=== PATIENT | male | born 1955 | race Caucasian/White ===

== ENCOUNTER → 2018-09-25 08:49 | Outpatient (CLI) | payer MEDICARE, OTHER, SELFPAY ==
[2018-09-25 10:17] LABS: Hemoglobin A1C% w Est Avg Glu 6.4 % (4.0-6.0)
[2018-09-25 10:41] LABS: Alanine Aminotransferase 40 IU/L (21-72); Albumin 4.4 g/dL (3.5-5.0); Alkaline Phosphatase 64 U/L (38-126); Aspartate Aminotransferase 25 IU/L (17-59); Bilirubin Total 0.6 mg/dL (0.2-1.3); Blood Urea Nitrogen 18 mg/dL (9-20); Calcium 9.5 mg/dL (8.4-10.2); Carbon Dioxide 31 mmol/L (22-32); Chloride 99 mmol/L (98-107); Cholesterol 222 mg/dL (140-199); Estimated Glomerular Filt Rate > 60.0 mL/min (>60); Globulin 2.2 g/dL (1.7-4.1); Glucose 122 mg/dL (80-110); HDL Cholesterol 46 mg/dL (40-60); HEMOLYSIS < 15 (0-50); LDL Cholesterol Calculated 123 mg/dL (<100); Potassium 4.8 mmol/L (3.4-5.1); Sodium 140 mmol/L (137-145); Total Protein 6.6 g/dL (6.3-8.2); Triglycerides 264 mg/dL (35-150)
[2018-09-25 11:10] LABS: Prostate Specific Antigen Scrn 1.31 ng/mL (0.1-4.0)
== END ==
PROVIDERS: Visit Provider Internal Medicine
DX: E03.9 Hypothyroidism, unspecified (principal); E11.9 Type 2 diabetes mellitus without complications; I10 Essential (primary) hypertension
CPT/HCPCS: 36415; 80053; 80061; 83036; G0103

== ENCOUNTER → 2018-10-12 07:56 | Outpatient (CLI) | payer MEDICARE, OTHER, SELFPAY ==
--- NOTE | 2018-10-12 | DI.US.S_ITS ---
PROCEDURE: US ABD AORTA ANEURYSM SCREEN INDICATIONS: ABDOMINAL AORTIC ANEURYSM SCREENING TECHNIQUE: Real time scanning was performed of the aorta and iliac arteries, with image documentation. COMPARISON: None. FINDINGS: Aorta: Proximal aortic diameter measures 1.9 cm. Mid-aorta measures 1.6 cm. Distal aortic diameter is 1.5 cm. Iliac arteries: Right common iliac artery measures 1.1 cm. Left common iliac artery measures 1.0 cm. IMPRESSION: No evidence of abdominal aortic aneurysm. Dictated by: Franklin Esquivel M.D. on 10/12/2018 at 9:02 Approved by: Franklin Esquivel M.D. on 10/12/2018 at 9:03
== END ==
PROVIDERS: PCP Internal Medicine; Visit Provider Internal Medicine
DX: Z13.6 Encounter for screening for cardiovascular disorders (principal)
CPT/HCPCS: 76706

== ENCOUNTER → 2018-10-22 07:02 | Outpatient (CLI) | payer MEDICARE, OTHER, SELFPAY ==
[2018-10-22 08:29] LABS: Alanine Aminotransferase 36 IU/L (21-72); Aspartate Aminotransferase 25 IU/L (17-59); Cholesterol 119 mg/dL (140-199); HDL Cholesterol 37 mg/dL (40-60); LDL Cholesterol Calculated 55 mg/dL (<100); Triglycerides 136 mg/dL (35-150)
[2018-10-22 09:30] LABS: Hep C Virus Ab w/Reflex Quant NEGATIVE s/c (NEGATIVE)
== END ==
PROVIDERS: PCP Internal Medicine; Visit Provider Internal Medicine
DX: E78.00 Pure hypercholesterolemia, unspecified (principal)
CPT/HCPCS: 36415; 80061; 84450; 84460; 86803

== ENCOUNTER → 2019-11-22 09:07 | Outpatient (CLI) | payer MEDICARE, OTHER, SELFPAY ==
[2019-11-22 09:23] LABS: Add Manual Diff / Slide Review NO; Basophils Absolute Auto 100 /uL (0-100); Basophils Percent Auto 0.8 % (0-2); Eosinophils Absolute Auto 100 /uL (0-450); Eosinophils Percent Auto 1.6 % (2-4); Lymphocytes Absolute Auto 1500 /uL (1100-4500); Lymphocytes Percent Auto 20.3 % (25-40); Mean Corpuscular HGB Conc 35.7 % (30-36); Mean Corpuscular Hemoglobin 31.4 PG (26-34); Monocytes Absolute Auto 500 /uL (0-900); Neutrophils Absolute Auto 5400 /uL (1500-7000); Neutrophils Percent Auto 71.3 % (50-75); Platelet Count 287 X10^3/uL (150-400); Red Blood Cell Count 4.77 X10^6/uL (4.5-5.9); Red Cell Distribution Width 13.1 % (11.6-14.8); White Blood Cell Count 7.6 X10^3/uL (4.5-11.0)
[2019-11-22 09:30] LABS: Monotest Negative (Negative)
== END ==
PROVIDERS: PCP Internal Medicine; Visit Provider Internal Medicine
DX: J06.9 Acute upper respiratory infection, unspecified (principal)
CPT/HCPCS: 36415; 85025; 86318

== ENCOUNTER → 2019-12-03 08:05 | Outpatient (CLI) | payer MEDICARE, OTHER, SELFPAY ==
--- NOTE | 2019-12-05 04:18 | DI.NM.S_ITS ---
DATE OF SERVICE: 12/03/2019 PROCEDURE PERFORMED: Exercise treadmill stress and rest myocardial perfusion imaging study with gating to assess ejection fraction and regional wall motion. ORDERING PROVIDER: Pasha Lam MD INDICATIONS: The patient is a 64-year-old hypertensive, diabetic male with chronic exertional dyspnea. EXERCISE TREADMILL TESTING: The patient was able to exercise for 7 minutes 32 seconds on a standard Camacho protocol, suggesting average exercise capacity with an HERNAN of 0%. He had a normal heart rate and blood pressure response, achieving a maximum heart rate of 141 bpm (92% of his predicted maximum). He developed 4/10 chest discomfort in stage III that resolved promptly in recovery. His resting ECG is normal with normal ST segments. There are no significant ST segment shifts with exercise or into recovery. There were no arrhthymias seen. At 6 minutes 35 seconds of exercise, at a heart rate of 131 bpm, 26.8 mCi of technetium 99m Myoview was injected and the patient was imaged 15 minutes later using a gated SPECT acquisition protocol. He returned the following day and was reinjected with an additional 25.7 mCi of technetium 99m Myoview and was imaged 40 minutes later, again using a gated SPECT acquisition protocol. FINDINGS: RAW DATA: There is fairly good myocardial tracer uptake, although there does appear to be some diaphragmatic attenuation. Lung/heart ratio is normal at 0.24 with a normal TID ratio of 0.98. QUANTITATIVE GATED SPECT: Post stress ejection fraction is estimated at 74% without any regional wall motion abnormality. Resting ejection fraction is 75% with an end diastolic volume of 80 mL. MYOCARDIAL PERFUSION IMAGING: Post stress supine images show a fairly normal myocardial perfusion pattern with mildly reduced counts throughout the inferior wall in a pattern consistent with diaphragmatic attenuation, supported by its complete resolution on the prone images, which reveal a completely normal perfusion pattern. The resting images show an identical perfusion pattern without any areas of improvement. IMPRESSION: 1. Probable normal myocardial perfusion study. 2. Mild fixed inferior wall perfusion defect that completely resolves on prone imaging, consistent with diaphragmatic attenuation artifact. There is no compelling evidence for any myocardial ischemia or previous myocardial infarction. 3. Normal LV systolic function without any focal wall motion abnormality. 4. Average exercise capacity with provocable chest discomfort but no EKG changes of ischemia. Given the absence of any electrocardiographic or scintigraphic evidence for ischemia, this likely does not represent angina. However, if there is a high degree of clinical suspicion for ischemia, then stress echocardiography may add additional reassurance. Regardless, given the patient's normal LV systolic function and good exercise capacity, this would be considered a low risk study. Maxi Osorio - ANA LAURA/lesley/bradford doc#: [id number]/job#: [id number] dd: 12/04/2019 16:32:00 dt: 12/05/2019 04:03:00 DICTATING MD/COPIES TO: Milo Forte MD; Pasha Lam MD COPIES MNE: GABO;
== END ==
PROVIDERS: PCP Internal Medicine; Visit Provider Internal Medicine
DX: R06.09 Other forms of dyspnea (principal); R07.9 Chest pain, unspecified; E11.9 Type 2 diabetes mellitus without complications; I10 Essential (primary) hypertension
CPT/HCPCS: 78452; 93017; A9502

== ENCOUNTER → 2020-03-26 08:38 | Outpatient (CLI) | payer MEDICARE, OTHER, SELFPAY ==
[2020-03-26 10:01] LABS: Add Manual Diff / Slide Review NO; Basophils Absolute Auto 0 /uL (0-100); Basophils Percent Auto 0.8 % (0-2); Eosinophils Absolute Auto 100 /uL (0-450); Eosinophils Percent Auto 2.1 % (2-4); Hematocrit 42.7 % (41-53); Hemoglobin 14.8 g/dL (13.5-17.5); Lymphocytes Absolute Auto 1400 /uL (1100-4500); Lymphocytes Percent Auto 28.2 % (25-40); Mean Corpuscular HGB Conc 34.7 % (30-36); Mean Corpuscular Volume 89.3 fL (80-100); Monocytes Absolute Auto 400 /uL (0-900); Monocytes Percent Auto 8.3 % (3-14); Neutrophils Absolute Auto 3100 /uL (1500-7000); Neutrophils Percent Auto 60.6 % (50-75); Platelet Count 172 X10^3/uL (150-400); Red Blood Cell Count 4.78 X10^6/uL (4.5-5.9); Red Cell Distribution Width 12.8 % (11.6-14.8); White Blood Cell Count 5.1 X10^3/uL (4.5-11.0)
[2020-03-26 10:11] LABS: Hemoglobin A1C% w Est Avg Glu 6.9 % (4.0-6.0)
[2020-03-26 10:41] LABS: Alanine Aminotransferase 19 IU/L (<50); Albumin 3.9 g/dL (3.5-5.0); Albumin Globulin Ratio 1.6 (1.0-2.8); Alkaline Phosphatase 67 U/L (38-126); Aspartate Aminotransferase 23 IU/L (17-59); BUN Creatinine Ratio 20.7 (6-22); Bilirubin Total 0.5 mg/dL (0.2-1.3); Blood Urea Nitrogen 19 mg/dL (9-20); Calcium 9.1 mg/dL (8.4-10.2); Carbon Dioxide 29 mmol/L (22-32); Chloride 103 mmol/L (98-107); Cholesterol 119 mg/dL (140-199); Estimated Glomerular Filt Rate > 60.0 mL/min (>60); Globulin 2.4 g/dL (1.7-4.1); Glucose 115 mg/dL (80-110); HDL Cholesterol 34 mg/dL (40-60); HEMOLYSIS < 15 (0-50); LDL Cholesterol Calculated 63 mg/dL (<100); Potassium 4.4 mmol/L (3.4-5.1); Sodium 138 mmol/L (137-145); Total Protein 6.3 g/dL (6.3-8.2); Triglycerides 112 mg/dL (35-150)
[2020-03-26 11:05] LABS: TSH w/ Reflex to FT4 0.98 uIU/mL (0.47-4.68)
== END ==
PROVIDERS: PCP Internal Medicine; Referring Provider Internal Medicine; Visit Provider Internal Medicine
DX: I10 Essential (primary) hypertension (principal); E11.9 Type 2 diabetes mellitus without complications; E03.9 Hypothyroidism, unspecified; E78.00 Pure hypercholesterolemia, unspecified
CPT/HCPCS: 36415; 80053; 80061; 83036; 84443; 85025

== ENCOUNTER 2020-06-02 19:44 | Emergency (ER) | payer MEDICARE, OTHER, SELFPAY ==
[2020-06-02] VITALS (18 sets, daily range): BP systolic 141–173; BP diastolic 84–106; PULSE 57–81; RESP 15–20; TEMP 36.7–36.9; O2SAT 93–99
--- NOTE | 2020-06-02 19:58 | DI.CT.S_ITS ---
PROCEDURE: CT STROKE INDICATIONS: left hemianopsia x30 minutes, tpa candidate TECHNIQUE: Noncontrast 4.5 mm thick angled axial sections acquired from the foramen magnum to the vertex, with coronal reformats. For radiation dose reduction, the following was used: automated exposure control, adjustment of mA and/or kV according to patient size. COMPARISON: None. FINDINGS: Image quality: Excellent. CSF spaces: Basal cisterns are patent. No extra-axial fluid collections. Ventricles are normal in size and shape. Brain: No midline shift. Punctate hyperdensity is noted along the anterior margin of the left cerebellum.. Henderson-white matter interface is normal. Skull and face: Calvarium and visualized facial bones are intact, without suspicious lesions. Sinuses: Visualized sinuses and mastoids are clear. IMPRESSION: 1. Punctate hyperdensity along the anterior margin of cerebellum suspected to represent area of calcification possibly related to dystrophic calcification or vascular calcification. However, no priors are available for comparison. The above findings were discussed with Dr. Ari Salazar on 06/02/2020 at 8:23 p.m.. This study fulfills neurological imaging criteria for inclusion or exclusion of acute stroke therapies based on available published neurological imaging guidelines. Dictated by: Ofe Garcia M.D. on 06/02/2020 at 20:23 Approved by: Ofe Garcia M.D. on 06/02/2020 at 20:26
--- NOTE | 2020-06-02 20:03 | ED.NEUROSD ---
HPI - Neuro Symptoms/Deficit General Chief Complaint: Neuro Symptoms/Deficit Stated Complaint: LOSS EYE SIGHT TO LEFT EYE Time Seen by Provider: 06/02/20 19:45 Source: patient Mode of arrival: Ambulatory Limitations: no limitations History of Present Illness HPI Narrative: 65M former smoker with history of hypothyroid, diabetes, hypertension, GERD presents with his for evaluation of a sudden-onset painless left eye vision change that started about 30 minutes prior to his arrival. He had a normal day and was going about his normal routine when he sat down to his computer at about 7:30 p.m. and noticed that he could not type the password into his computer because he could not see the keys. He denies associated symptoms such as drooping face, trouble with speech or numbness, tingling or weakness of his extremities. He got off the couch in went to go look in the mere to evaluate his eye and he was walking into the wall because he could not see it. He presented here was activated as a code stroke given the time of onset of his symptoms. He denies any recent injury, prior cardiac history such as AFib or patent [place]. He denies any history of blood thinners, recent arterial punctures, or bleeding problems. Onset (ago): minute(s) Last Observed Normal: 19:30 Timing confirmed by: spouse History of same: No Severity: mild Relieving factors: none Exacerbating factors: none Context: sudden onset On Anticoagulants: No Associated symptoms: denies other symptoms Treatments Prior to Arrival: Aspirin (81mg that he takes daily) Related Data Home Medications Medication Instructions Recorded Confirmed levothyroxine #0 09/24/17 lisinopril #0 09/24/17 omeprazole #0 09/24/17 metformin 1,000 mg PO BID 06/02/20 06/02/20 Allergies Allergy/AdvReac Type Severity Reaction Status Date / Time No Known Allergies Allergy Uncoded 02/21/18 12:48 Review of Systems Constitutional Constitutional: Denies chills, Denies fatigue, Denies fever(s), Denies frequent falls, Denies lethargy and Denies weakness Eyes Eyes: Denies change in vision, Denies eye discharge, Denies irritation and Reports loss of vision ENT Ears, Nose, Mouth, and Throat: Denies change in voice, Denies dizziness, Denies neck pain, Denies sore throat and Denies throat swelling Cardiovascular Cardiovascular: Denies chest pain, Denies irregular heart rhythm, Denies lightheadedness, Denies palpitations, Denies dyspnea, Denies dyspnea on exertion and Denies orthopnea Respiratory Respiratory: Denies cough, Denies dyspnea, Denies dyspnea on exertion and Denies wheezing Gastrointestinal Gastrointestinal: Denies abdominal pain, Denies change in bowel habits, Denies diarrhea, Denies nausea and Denies vomiting Musculoskeletal Musculoskeletal: Denies neck pain and Denies numbness Integumentary/Breasts Skin/Breast: Denies pruritus, Denies erythema, Denies rash and Denies wounds Neurologic Neurologic: Denies behavioral changes, Denies confusion, Denies dizziness, Denies frequent falls, Reports loss of vision, Denies numbness and Denies weakness Psychiatric Psychiatric: Denies anxiety, Denies behavioral changes, Denies confusion, Denies depression, Denies homicidal ideation and Denies suicidal ideation Endocrine Endocrine: Denies fatigue, Denies flushing and Denies palpitations Hematologic/Lymphatic Hematologic/Lymphatic: Denies easy bruising Allergic/Immunologic Allergic/Immunologic: Denies urticaria, Denies throat swelling and Denies wheezing Patient History Smoking Status: Former smoker alcohol intake frequency: 0-2 drinks per day Substance Use Type: does not use Exam Narrative Exam Narrative: GENERAL: [65] year old patient appears stated age. Well-nourished, well-developed patient, in mild distress. HEAD: Atraumatic. Normocephalic. EYES: Pupils equal round and reactive. Extraocular motions intact. No scleral icterus. No injection or drainage. ENT: Nose without bleeding, purulent drainage. Throat without erythema, tonsillar hypertrophy or exudate. Airway patent. NECK: Trachea midline. Non tender CARDIOVASCULAR: Regular rate and rhythm without murmurs, gallops, or rubs. RESPIRATORY: Clear to auscultation. Breath sounds equal bilaterally. No wheezes, rales, or rhonchi. GASTROINTESTINAL: Abdomen soft, non-tender, nondistended. EXTREMITIES: No edema or joint tenderness. BACK: Nontender without deformity or crepitance. No flank tenderness. NEURO: AOx3. SKIN: No rash or erythema of visible areas Initial Vital Signs Initial Vital Signs: Vital Signs Temperature 98.3 F 06/02/20 19:53 Pulse Rate 81 06/02/20 19:53 Respiratory Rate 20 06/02/20 19:53 Blood Pressure 173/84 H 06/02/20 19:53 Pulse Oximetry 99 06/02/20 19:53 Scores NIH Stroke Scale Level of Conciousness: Alert, keenly responsive Ask month/age: Answers both questions correctly. Open/close eyes, close hand: Performs both tasks correctly Best gaze horizontal: Normal Visual corona: Complete hemianopia Facial palsy: Normal symetrical movement Left arm drift: No drift for full 10 sec Right arm drift: No drift for full 10 sec Left leg drift: No drift for full 10 sec Right leg drift: No drift for full 10 sec Limb ataxia: Absent Sensory on face/arms/legs: Normal, no sensory loss Best language: No aphasia, normal Dysarthria: Normal Extinction or inattention: No abnormality Total NIH Stroke scale score: 2 Course Course Course Narrative: tPA (Tissue Plasminogen Activator) Dosing for Stroke Calculator from [employer] on 06/02/2020 All calculations should be rechecked by clinician prior to use RESULT SUMMARY: 8.4 mg Bolus dose, given IV over 1 min 75.7 mg Infusion, given IV over 60 mins 15.9 mg Waste, to be discarded INPUTS: Weight ?> 93.4 kg tPA Contraindications for Ischemic Stroke from [employer] on 06/02/2020 All calculations should be rechecked by clinician prior to use RESULT SUMMARY: Patient eligible for tPA. INPUTS: Age ?16 ?> 1 = Yes Clinical diagnosis of ischemic stroke causing neurological deficit ?> 1 = Yes Time of symptom onset ?> 1 = Yes Intracranial hemorrhage on CT ?> 0 = No Clinical presentation suggests subarachnoid hemorrhage ?> 0 = No Neurosurgery, head trauma, or stroke in past 3 months ?> 0 = No Uncontrolled hypertension (>185 mmHg SBP or >110 mmHg DBP) ?> 0 = No History of intracranial hemorrhage ?> 0 = No Known intracranial arteriovenous malformation, neoplasm, or aneurysm ?> 0 = No Active internal bleeding ?> 0 = No Suspected/confirmed endocarditis ?> 0 = No Known bleeding diathesis ?> 0 = No Abnormal blood glucose ( ?> 0 = No Only minor or rapidly improving stroke symptoms ?> 0 = No Major surgery or serious non-head trauma in the previous 14 days ?> 0 = No History of gastrointestinal or urinary tract hemorrhage within 21 days ?> 0 = No Seizure at stroke onset ?> 0 = No Recent arterial puncture at a noncompressible site ?> 0 = No Recent lumbar puncture ?> 0 = No Post myocardial infarction pericarditis ?> 0 = No ?> 0 = No Age >80 years ?> 0 = No History of prior stroke and diabetes ?> 0 = No Any active anticoagulant use (even with INR ?> 0 = No NIHSS >25 ?> 0 = No CT shows multilobar infarction (hypodensity >1/3 cerebral hemisphere) ?> 0 = No 2119 - [facility] has no neuroICU beds 2100 - [facility] cannot accept this patient 215 - [facility] has no available beds 2200 - [facility] cannot accept this patient 2205 - has beds. Initial discussion with Dr. Jamil (Neuro) agrees with plan, requests call to automotive tire testing supervisor. Dr. Salas (Chief Port Director) calls back and happy to accept. Orders Ordered: ED Orders 06/02/20 19:55 Basic Metabolic Panel Stat Complete Blood Count AUTO DIFF Stat Partial Thromboplastin Time Stat Prothrombin Time INR Stat 06/02/20 19:58 CT Stroke Stat Urine Drug Screen, Rapid Stat 06/02/20 20:01 EKG-12 Lead Stat 06/02/20 20:07 CT angio head and neck Stat Sodium Chloride (Normal Saline 0.9%) 1,000 mls @ 150 mls/hr IV CONT BISHNU Last Infusion: 06/02/20 23:00 Dose: 21 mls/hr Documented by: Admin: 06/02/20 21:20 Dose: 150 mls/hr Documented by: SIXTO Discontinued Medications Alteplase, Recombinant (Activase) 8.4 mg 0.09 mg/kg (8.4 mg) IV NOW ONE Stop: 06/02/20 20:54 Last Admin: 06/02/20 21:28 Dose: 8.4 mg Documented by: SIXTO Alteplase, Recombinant (Activase) 75.7 mg 0.81 mg/kg (75.7 mg) IV NOW ONE Stop: 06/02/20 20:54 Last Admin: 06/02/20 21:28 Dose: 75.7 mg Documented by: SIXTO Consultations Consultation #1: call to [facility] Team Time: 20:05 Consultation #2: Dr. Nava ([facility]) has used telemedicine to consult, examine, consent patient and after paging radiologist and discussing CT she determines he is a candidate and recommends TPA at 2054. Time: 20:55 Vital Signs Vital signs: Vital Signs - 8 hr 06/02/20 19:53 06/02/20 20:01 06/02/20 20:30 Temperature 98.3 F Pulse Rate 81 63 71 Respiratory Rate 20 15 16 Blood Pressure 173/84 H Pulse Oximetry 99 97 97 06/02/20 21:12 06/02/20 21:13 06/02/20 21:15 Temperature Pulse Rate 62 64 Respiratory Rate 17 17 Blood Pressure 160/84 H Pulse Oximetry 97 95 96 06/02/20 21:30 06/02/20 21:45 06/02/20 22:00 Temperature 98.4 F 98.3 F Pulse Rate 60 61 77 Respiratory Rate 17 16 20 Blood Pressure 165/99 H 152/84 H 159/86 H Pulse Oximetry 95 93 06/02/20 22:03 06/02/20 22:15 06/02/20 22:30 Temperature 98.3 F 98.3 F Pulse Rate 62 60 60 Respiratory Rate 15 Blood Pressure 159/86 H 153/94 H 151/96 H Pulse Oximetry 96 95 95 06/02/20 22:45 06/02/20 22:46 06/02/20 22:59 Temperature 98.3 F Pulse Rate 60 58 L 62 Respiratory Rate Blood Pressure 156/105 H 168/106 H Pulse Oximetry 96 95 95 06/02/20 23:00 Temperature 98.1 F Pulse Rate Respiratory Rate Blood Pressure 141/93 H Pulse Oximetry MDM - Neuro Symptoms/Deficit Lab Data Result diagrams: 06/02/20 19:55 06/02/20 19:55 Labs: Lab Results 06/02/20 06/02/20 06/02/20 Range/Units 19:55 19:55 19:55 WBC 7.0 (4.5-11.0) X10^3/uL RBC 4.97 (4.5-5.9) X10^6/uL Hgb 15.1 (13.5-17.5) g/dL Hct 44.1 (41-53) % MCV 88.8 (80-100) fL MCH 30.5 (26-34) PG MCHC 34.3 (30-36) % RDW 13.2 (11.6-14.8) % Plt Count 203 (150-400) X10^3/uL Neut % (Auto) 58.5 (50-75) % Lymph % (Auto) 31.5 (25-40) % [place] % (Auto) 7.9 (3-14) % Eos % (Auto) 1.4 L (2-4) % Baso % (Auto) 0.7 (0-2) % Neut # (Auto) 4100 (4124-5986) /uL Lymph # (Auto) 2200 (9373-2642) /uL [place] # (Auto) 600 (0-900) /uL Eos # (Auto) 100 (0-450) /uL Baso # (Auto) 0 (0-100) /uL PT 11.4 (10.1-12.7) SECONDS INR 1.0 (0.9-1.3) APTT 29 (26.4-36.2) SECONDS Sodium 135 L (137-145) mmol/L Potassium 4.1 (3.4-5.1) mmol/L Chloride 102 (98-107) mmol/L Carbon Dioxide 25 (22-32) mmol/L BUN 16 (9-20) mg/dL Creatinine 0.98 (0.66-1.25) mg/dL Estimated GFR > 60.0 (>60) mL/min BUN/Creatinine Ratio 16.3 (6-22) Glucose 189 H (80-110) mg/dL Calcium 9.3 (8.4-10.2) mg/dL Point of Care Testing Glucose POC 201 MDM Narrative Medical decision making narrative: Patient symptoms consistent with stroke. Despite low score (2), his vision is preventing him from safely ambulating and is likely to have significant life altering impact. Call early to [facility] and Dr. Nava prefers to use telemedicine to interact with this patient. After exam and initial consultation patient and family want to take a minute to discuss what they have learned. Patient attempts to ambulate to the bathroom and nearly walks into the wall. Upon return, and repeat discussion with Dr. Naav we agree that TPA gives patient the best chance for recovery. Critical Care Time Critical Care Time Critical Care Time: Yes Total Critical Care Time: 45 Attestation: The high probability of a clinically significant, sudden or life threatening deterioration of the [NV] system(s) required my full and direct attention, intervention and personal management. The aggregate critical care time was [45] minutes. This time is in addition to time spent performing reported procedures but includes the following: [x] Data Review and interpretation [x] Patient assessment and monitoring of vital signs [x] Documentation [x] Medication orders and management Discharge Plan Departure Patient Disposition: [facility] Clinical Impression: Received intravenous tissue plasminogen activator (tPA) in emergency department Stroke Qualifiers: CVA mechanism: unspecified Qualified Code(s): I63.9 - Cerebral infarction, unspecified Prescriptions: No Action lisinopril 10 MG tablet Qty: 0 RF: 0 omeprazole 20 MG capsule,delayed release(DR/EC) Qty: 0 RF: 0 levothyroxine 25 MCG tablet Qty: 0 RF: 0 metformin 1,000 mg Tablet 1,000 mg PO BID RF: 0 Referrals: Pasha Lam MD [Primary Care Provider] -
--- NOTE | 2020-06-02 20:07 | DI.CT.S_ITS ---
PROCEDURE: CT ANGIO HEAD AND NECK INDICATIONS: stroke, request per [facility] TECHNIQUE: Pre-contrast 4.5 mm thick sections acquired from the foramen magnum to the vertex. After the administration of intravenous contrast, 1 mm thick sections acquired from the aortic arch through the [place] of [place]. Post-contrast 4.5 mm thick sections then re-acquired from the foramen magnum to the vertex. 3-dimensional [id number] (MIP) and/or volume rendering reformats were acquired of the central intracranial vasculature and neck separately. COMPARISON: Merged With [facility], CT, CT STROKE, 06/02/2020, 20:07. FINDINGS: Image quality: Excellent. BRAIN: CSF spaces: Ventricles are normal in size and shape. Basal cisterns are patent. No extra-axial fluid collections. Brain: No midline shift. Previous area of increased density suggestive of calcification in the anterior left cerebellum appears to represent a vascular structure. No intracranial bleeds or masses. Henderson-white matter interface appears intact. Skull and face: Calvarium and facial bones appear intact, without suspicious lesions. Orbits appear normal. Sinuses: Sinuses and mastoids are clear. HEAD CT ANGIOGRAPHY: Anterior circulation: Intracranial internal carotid arteries are normal in size and flow. The flow within the paired anterior cerebral arteries is normal and symmetric. The flow within the middle cerebral arteries is normal and symmetric. The anterior communicating artery is seen. No aneurysms are seen. Posterior circulation: The posterior circulation demonstrates a left vertebral artery dominance. There is a focus of calcification and approximately 50% narrowing within the distal left vertebral artery. Basilar artery and posterior cerebral arteries demonstrate no areas of hemodynamically significant stenosis, vascular occlusion or aneurysmal dilation. Posterior communicating arteries are within normal limits. NECK CT ANGIOGRAPHY: The origins of the left and right common, internal and external carotid arteries demonstrate no areas of hemodynamically significant stenosis, vascular occlusion or aneurysmal dilation. Origins of the left and right vertebral arteries demonstrate no areas of hemodynamically significant stenosis, vascular occlusion or aneurysmal dilation. Bovine arch is present consistent with congenital variation. Limited, visualized portions of the subclavian vasculature are unremarkable. IMPRESSION: 1. No areas of hemodynamically significant stenosis, vascular occlusion or aneurysmal dilation within the anterior circulation. 2. Approximate 50% narrowing at the distal aspect of the left vertebral artery. Any quantitative measurements of stenosis were performed using NASCET criteria. Dictated by: Ofe Garcia M.D. on 06/02/2020 at 20:35 Approved by: Ofe Garcia M.D. on 06/02/2020 at 20:39
[2020-06-02 20:08] LABS: Add Manual Diff / Slide Review NO; Basophils Absolute Auto 0 /uL (0-100); Basophils Percent Auto 0.7 % (0-2); Eosinophils Absolute Auto 100 /uL (0-450); Eosinophils Percent Auto 1.4 % (2-4); Hematocrit 44.1 % (41-53); Hemoglobin 15.1 g/dL (13.5-17.5); Lymphocytes Absolute Auto 2200 /uL (1100-4500); Lymphocytes Percent Auto 31.5 % (25-40); Mean Corpuscular HGB Conc 34.3 % (30-36); Mean Corpuscular Hemoglobin 30.5 PG (26-34); Mean Corpuscular Volume 88.8 fL (80-100); Monocytes Absolute Auto 600 /uL (0-900); Monocytes Percent Auto 7.9 % (3-14); Neutrophils Absolute Auto 4100 /uL (1500-7000); Neutrophils Percent Auto 58.5 % (50-75); Platelet Count 203 X10^3/uL (150-400); Red Blood Cell Count 4.97 X10^6/uL (4.5-5.9); Red Cell Distribution Width 13.2 % (11.6-14.8)
[2020-06-02 20:09] LABS: Prothrombin Time 11.4 SECONDS (10.1-12.7)
[2020-06-02 20:12] LABS: PTT Partial Thromboplastin Tim 29 SECONDS (26.4-36.2)
[2020-06-02 20:14] LABS: BUN Creatinine Ratio 16.3 (6-22); Blood Urea Nitrogen 16 mg/dL (9-20); Calcium 9.3 mg/dL (8.4-10.2); Carbon Dioxide 25 mmol/L (22-32); Chloride 102 mmol/L (98-107); Estimated Glomerular Filt Rate > 60.0 mL/min (>60); Glucose 189 mg/dL (80-110); HEMOLYSIS < 15 (0-50); Potassium 4.1 mmol/L (3.4-5.1); Sodium 135 mmol/L (137-145)
[2020-06-02] MEDS: SODIUM CHLORIDE 0.9% 1,000 ML 150 ML IV (21:20)
[2020-06-02] MEDS: ALTEPLASE 100 MG VIAL 75.7 MG IV (21:28)
[2020-06-02] MEDS: ALTEPLASE 100 MG VIAL 8.4 MG IV (21:28)
--- NOTE | 2020-06-02 22:21 | PC.NURSE ---
Addendum entered by Jenae Suero R.N. 06/02/20 22:37: 2230: MD Salazar in room to update pt on transfer to [facility]. Informed MD of TPA infusion at one hour ernesto. Pt continues to have vision field loss on the left, bilateral eyes. No other neuro deficits present. Original Note: 2129: TPA bolus given and infusion started. 2219: Pt reports headache is gone.
--- NOTE | 2020-06-02 22:55 | PC.NURSE ---
2245: notified of BP 156/105
--- NOTE | 2020-06-02 23:37 | PC.NURSE ---
Transport arrived for pt. Last set of 15 minute vitals taken at 2330. Pt remains at baseline. Assisted to BR before departure.
== END 2020-06-02 23:45 | disposition short-term general hospital (02) ==
PROVIDERS: Emergency Provider Emergency Medicine; PCP Internal Medicine
DX: I63.9 Cerebral infarction, unspecified (principal); Z92.82 Status post administration of tPA (rtPA) in a different facility within the last 24 hours prior to admission to current facility; H54.7 Unspecified visual loss; E03.9 Hypothyroidism, unspecified; E11.9 Type 2 diabetes mellitus without complications; I10 Essential (primary) hypertension; K21.9 Gastro-esophageal reflux disease without esophagitis; Z79.82 Long term (current) use of aspirin
CPT/HCPCS: 36415; 70450; 70496; 70498; 80048; 82962; 85025; 85610; 85730; 93005; 96361; 96374; 99285; 99291; 99292; Q3014; J2997

== ENCOUNTER 2020-06-10 17:39 | Emergency (ER) | payer MEDICARE, OTHER, SELFPAY ==
--- NOTE | 2020-06-10 17:52 | ED_ITS ---
HPI - Neuro Symptoms/Deficit General Chief Complaint: Neuro Symptoms/Deficit Stated Complaint: hx of a stroke, visual change, now resolved Time Seen by Provider: 06/10/20 17:43 Source: patient Mode of arrival: Ambulatory History of Present Illness HPI Narrative: Patient had visual disturbance left eye had 5:19 p.m. just prior to arrival. Lasted 10 minutes. Now has resolved. Patient was seen here 8 days ago for the same complaint. Please see notes from that visit. He was given tPA and sent to [facility] for further testing. Patient was originally discussed with [facility] on that visit. Patient states after tPA given in route by ambulance symptoms resolved and was able see. Patient had painless vision loss. Never had headache. This same as for today does not have headache. She has had blurry distorted vision in the left visual field. Lasted 10 minutes now resolved. Never had any numbness tingling weakness slurred speech or facial droop. Related Data Home Medications Medication Instructions Recorded Confirmed levothyroxine #0 09/24/17 lisinopril #0 09/24/17 omeprazole #0 09/24/17 metformin 1,000 mg PO BID 06/02/20 06/02/20 Previous Rx's Medication Instructions Recorded clopidogrel 75 mg PO DAILY #30 tab 06/10/20 Allergies Allergy/AdvReac Type Severity Reaction Status Date / Time No Known Allergies Allergy Verified 06/10/20 19:29 Review of Systems Review of Systems Narrative: GENERAL: Denies chills, fatigue, malaise, fever, sweats. HEENT: Denies sinus pain, ear pain, sore throat, difficulty swallowing, dizziness. RESPIRATORY: Denies dyspnea, cough, wheezing, hemoptysis, sputum. CARDIOVASCULAR: Denies chest pain, palpitations, orthopnea, edema, GASTROINTESTINAL: Denies nausea, vomiting, abdominal pain, diarrhea, constipation, melena. : Denies dysuria, frequency, incontinence, hematuria, urinary retention. MUSCULOSKELETAL: denies weakness, joint pain, or bony pain SKIN: Denies rash, skin lesions, or other NEUROLOGIC: Denies weakness, headache, numbness, change in speech, confusion, seizures, incoordination. Complains of left visual loss PSYCHIATRIC: No concerning psychosocial issues. ROS Unobtainable: All systems reviewed & are unremarkable except as noted in HPI and below Patient History Social History Smoking Status: Former smoker Smoking Status: Former smoker alcohol intake frequency: 0-2 drinks per day Substance Use Type: does not use Exam Narrative Exam Narrative: GENERAL: patient appears stated age. Well-nourished, well- developed patient, in no distress, not toxic HEAD: Atraumatic. Normocephalic. EYES: Pupils equal round and reactive. Extraocular motions intact. No scleral icterus. No injection or drainage. ENT: Nose without bleeding, purulent drainage. Throat without erythema, tonsillar hypertrophy or exudate. Airway patent. NECK: Trachea midline. Non tender CARDIOVASCULAR: Regular rate and rhythm without murmurs, gallops, or rubs. RESPIRATORY: Clear to auscultation. Breath sounds equal bilaterally. No wheezes, rales, or rhonchi. GASTROINTESTINAL: Abdomen soft, non-tender, nondistended. EXTREMITIES: No edema or joint tenderness. BACK: Nontender without deformity or crepitance. No flank tenderness. NEURO: AOx3. Clear speech no facial droop steady self gait no foot drop. Light touch intact to bilateral face hands and feet. Strong equal automatic fabric cutter bilaterally and ankle flexion hip flexion and knee flexion. Strong bilateral patellar reflexes. Steady Romberg, negative pronator drift SKIN: No rash or erythema of visible areas PSYCH: Not anxious, is cooperative Initial Vital Signs Initial Vital Signs: Vital Signs Temperature 98.6 F 06/10/20 18:14 Pulse Rate 69 06/10/20 18:14 Respiratory Rate 16 06/10/20 18:14 Blood Pressure 145/69 H 06/10/20 18:14 Pulse Oximetry 97 06/10/20 18:14 Scores NIH Stroke Scale Level of Conciousness: Alert, keenly responsive Ask month/age: Answers both questions correctly. Open/close eyes, close hand: Performs both tasks correctly Best gaze horizontal: Normal Visual corona: No visual loss Facial palsy: Normal symetrical movement Left arm drift: No drift for full 10 sec Right arm drift: No drift for full 10 sec Left leg drift: No drift for full 10 sec Right leg drift: No drift for full 10 sec Limb ataxia: Absent Sensory on face/arms/legs: Normal, no sensory loss Best language: No aphasia, normal Dysarthria: Normal Extinction or inattention: No abnormality Total NIH Stroke scale score: 0 Course Course Course Narrative: Patient and agree with plan for discharge home and new prescription Orders Ordered: Discontinued Medications Aspirin (Aspirin Ec) 81 mg PO NOW ONE Stop: 06/10/20 19:26 Last Admin: 06/10/20 19:46 Dose: 81 mg Documented by: KRISTEN Clopidogrel Bisulfate (Plavix) 75 mg PO NOW ONE Stop: 06/10/20 19:26 Last Admin: 06/10/20 19:46 Dose: 75 mg Documented by: KRISTEN Sodium Chloride (Normal Saline 0.9%) 1,000 mls @ 150 mls/hr IV CONT BISHNU Last Admin: 06/10/20 19:52 Dose: Not Given Documented by: KRISTEN Reevaluation(s) Reevaluation #1: Patient remains asymptomatic. No new changes. No new neuro deficits or complaints Time: 19:22 Consultations Consultation #1: Spoke with [facility] stroke team Dr. Price Jamil.. He took care patient when patient was admitted there. He has reviewed the films. No new interventions other than adding Plavix 75 mg daily for 30 days. Continue to take aspirin 81 mg daily. No tPA. Patient to follow-up telemedicine as instructed from discharge last Monday Time: 19:23 Vital Signs Vital signs: Vital Signs - 8 hr 06/10/20 18:14 06/10/20 18:30 06/10/20 19:00 Temperature 98.6 F Pulse Rate 69 65 Respiratory Rate 16 28 H Blood Pressure 145/69 H 167/79 H 155/76 H Pulse Oximetry 97 96 MDM - Neuro Symptoms/Deficit Differential Diagnosis Differential diagnosis: Likely transient cerebral ischemia Lab Data Result diagrams: 06/10/20 18:00 06/10/20 18:00 Labs: Lab Results 06/10/20 06/10/20 06/10/20 Range/Units 18:00 18:00 18:00 WBC 6.6 (4.5-11.0) X10^3/uL RBC 4.74 (4.5-5.9) X10^6/uL Hgb 14.9 (13.5-17.5) g/dL Hct 42.1 (41-53) % MCV 88.8 (80-100) fL MCH 31.5 (26-34) PG MCHC 35.5 (30-36) % RDW 13.1 (11.6-14.8) % Plt Count 199 (150-400) X10^3/uL Neut % (Auto) 62.7 (50-75) % Lymph % (Auto) 27.5 (25-40) % [place] % (Auto) 7.6 (3-14) % Eos % (Auto) 1.5 L (2-4) % Baso % (Auto) 0.7 (0-2) % Neut # (Auto) 4100 (6102-4310) /uL Lymph # (Auto) 1800 (7212-5593) /uL [place] # (Auto) 500 (0-900) /uL Eos # (Auto) 100 (0-450) /uL Baso # (Auto) 0 (0-100) /uL PT 11.5 (10.1-12.7) SECONDS INR 1.0 (0.9-1.3) APTT 30 (26.4-36.2) SECONDS Sodium 135 L (137-145) mmol/L Potassium 4.4 (3.4-5.1) mmol/L Chloride 100 (98-107) mmol/L Carbon Dioxide 29 (22-32) mmol/L BUN 21 H (9-20) mg/dL Creatinine 0.96 (0.66-1.25) mg/dL Estimated GFR > 60.0 (>60) mL/min BUN/Creatinine Ratio 21.9 (6-22) Glucose 135 H (80-110) mg/dL Calcium 9.3 (8.4-10.2) mg/dL Total Bilirubin 0.6 (0.2-1.3) mg/dL AST 26 (17-59) IU/L ALT 25 (<50) IU/L Alkaline Phosphatase 78 (38-126) U/L Total Creatine Kinase 84 (55-170) U/L CK-MB (CK-2) TNP CK-MB (CK-2) Rel Index TNP Troponin I < 0.012 (0.01-0.034) ng/mL Total Protein 6.5 (6.3-8.2) g/dL Albumin 4.2 (3.5-5.0) g/dL Globulin 2.3 (1.7-4.1) g/dL Albumin/Globulin Ratio 1.8 (1.0-2.8) Point of Care Testing Glucose POC [address] scan - head: Radiologist's Impression: [address] [address] [address] Scan Report Signed Patient: Maxi Osorio MMR#: [id number] : 3Acct:[id number] Age/Sex: 65 / MDate of Service: 06/10/20 Loc: ED Accession Number: [id number] Procedure: CT Stroke Ordering Provider: Gilberto Simms MD PROCEDURE: CT STROKE INDICATIONS: left eye blindness TECHNIQUE: Noncontrast 4.5 mm thick angled axial sections acquired from the foramen magnum to the vertex, with coronal reformats. For radiation dose reduction, the following was used: automated exposure control, adjustment of mA and/or kV according to patient size. COMPARISON: [facility], CT, CT ANGIO HEAD AND NECK, 06/02/2020, 20:13. [facility], CT, CT STROKE, 06/02/2020, 20:07. FINDINGS: Image quality: Excellent. CSF spaces: Basal cisterns are patent. No extra-axial fluid collections. The ventricles are symmetric in size and shape. Brain: Focal mild low-density can be seen involving the right parieto-occipital region. No intracranial bleeds or masses. There is cerebral volume loss for age, with resultant ventricular and sulcal prominence. There are periventricular and deep white matter chronic small vessel ischemic changes. There is intracranial internal carotid artery atherosclerosis. Skull and face: Calvarium and visualized facial bones appear intact, without suspicious lesions. Sinuses: Visualized sinuses and mastoids are clear. IMPRESSION: No ike acute hemorrhage can be seen. There is mild low-density involving the right parieto-occipital region. Differential diagnosis includes subacute infarction and mass with edema. This region appears worse than on the recent prior CT dated 06/02/2020. If clinically appropriate, please consider a dedicated brain MRI without and with contrast for further evaluation. This study fulfills neurological imaging criteria for inclusion or exclusion of acute stroke therapies based on available published neurological guidelines. Dictated by: Jeffery Dye M.D. on 06/10/2020 at 17:04 Approved by: Jeffery Dye M.D. on 06/10/2020 at 17:06 ECG Data Attestation: I personally reviewed and interpreted this ECG as follows: Interpretation: EKG normal sinus rhythm normal EKG rate [address] elevation or depression MDM Narrative Medical decision making narrative: Note tPA at this time. Symptoms have resolved, patient did have tPA 8 days ago. According to patient there was signs of a bleed when imaging was done at [facility]. Stroke Core Measures Contraindications for TPA in CVA: History of ICH Discharge Plan Departure Patient Disposition: Home Clinical Impression: Transient cerebral ischemia Qualifiers: Transient cerebral ischemia type: unspecified Qualified Code(s): G45.9 - Transient cerebral ischemic attack, unspecified Discharge Date/Time: 06/10/20 20:05 Instructions: DI for Transient Ischemic Attack Activity Restrictions/Additional Instructions: Return if worse or if any questions or concerns. Call your neurology office in the morning to confirm your teleconference appointment. Continue the Plavix until any changes needed by your neurology team. Prescriptions: New clopidogrel 75 mg tablet 75 mg PO DAILY Qty: 30 RF: 0 No Action lisinopril 10 MG tablet Qty: 0 RF: 0 omeprazole 20 MG capsule,delayed release(DR/EC) Qty: 0 RF: 0 levothyroxine 25 MCG tablet Qty: 0 RF: 0 metformin 1,000 mg Tablet 1,000 mg PO BID RF: 0 Referrals: Pasha Lam MD [Primary Care Provider] -
[2020-06-10 18:11] LABS: Add Manual Diff / Slide Review NO; Basophils Absolute Auto 0 /uL (0-100); Basophils Percent Auto 0.7 % (0-2); Eosinophils Absolute Auto 100 /uL (0-450); Eosinophils Percent Auto 1.5 % (2-4); Hematocrit 42.1 % (41-53); Hemoglobin 14.9 g/dL (13.5-17.5); Lymphocytes Absolute Auto 1800 /uL (1100-4500); Lymphocytes Percent Auto 27.5 % (25-40); Mean Corpuscular HGB Conc 35.5 % (30-36); Mean Corpuscular Hemoglobin 31.5 PG (26-34); Mean Corpuscular Volume 88.8 fL (80-100); Monocytes Absolute Auto 500 /uL (0-900); Monocytes Percent Auto 7.6 % (3-14); Neutrophils Absolute Auto 4100 /uL (1500-7000); Neutrophils Percent Auto 62.7 % (50-75); Platelet Count 199 X10^3/uL (150-400); Red Blood Cell Count 4.74 X10^6/uL (4.5-5.9); Red Cell Distribution Width 13.1 % (11.6-14.8); White Blood Cell Count 6.6 X10^3/uL (4.5-11.0)
[2020-06-10 18:14] VITALS: BP 145/69; PULSE 69; RESP 16; TEMP 37; O2SAT 97
[2020-06-10 18:18] LABS: Prothrombin Time 11.5 SECONDS (10.1-12.7)
[2020-06-10 18:21] LABS: PTT Partial Thromboplastin Tim 30 SECONDS (26.4-36.2)
[2020-06-10 18:23] LABS: Alanine Aminotransferase 25 IU/L (<50); Albumin 4.2 g/dL (3.5-5.0); Albumin Globulin Ratio 1.8 (1.0-2.8); Alkaline Phosphatase 78 U/L (38-126); Aspartate Aminotransferase 26 IU/L (17-59); BUN Creatinine Ratio 21.9 (6-22); Bilirubin Total 0.6 mg/dL (0.2-1.3); Blood Urea Nitrogen 21 mg/dL (9-20); Calcium 9.3 mg/dL (8.4-10.2); Carbon Dioxide 29 mmol/L (22-32); Chloride 100 mmol/L (98-107); Creatine Kinase 84 U/L (55-170); Estimated Glomerular Filt Rate > 60.0 mL/min (>60); Globulin 2.3 g/dL (1.7-4.1); Glucose 135 mg/dL (80-110); HEMOLYSIS < 15 (0-50); Potassium 4.4 mmol/L (3.4-5.1); Sodium 135 mmol/L (137-145); Total Protein 6.5 g/dL (6.3-8.2)
[2020-06-10 18:30] VITALS: BP 167/79
[2020-06-10 18:34] LABS: Troponin I < 0.012 ng/mL (0.01-0.034)
[2020-06-10 19:00] VITALS: BP 155/76; PULSE 65; RESP 28; O2SAT 96
[2020-06-10 19:30] VITALS: BP 145/82; PULSE 67; RESP 25; O2SAT 95
[2020-06-10] MEDS: CLOPIDOGREL 75 MG TABLET PO (19:46)
[2020-06-10] MEDS: ASPIRIN EC 81 MG TABLET PO (19:46)
[2020-06-10] MEDS: SODIUM CHLORIDE 0.9% 1,000 ML 150 ML IV (19:47)
== END 2020-06-10 20:05 | disposition home or self-care (01) ==
PROVIDERS: Emergency Provider Emergency Medicine; PCP Internal Medicine
DX: G45.9 Transient cerebral ischemic attack, unspecified (principal)
CPT/HCPCS: 36415; 70450; 80053; 82550; 82962; 84484; 85025; 85610; 85730; 93005; 99284; 99285

== ENCOUNTER → 2020-08-25 09:34 | Outpatient (CLI) | payer MEDICARE, OTHER, SELFPAY ==
[2020-08-25 10:41] LABS: Alanine Aminotransferase 27 IU/L (<50); Albumin Globulin Ratio 1.7 (1.0-2.8); Alkaline Phosphatase 84 U/L (38-126); Aspartate Aminotransferase 23 IU/L (17-59); Bilirubin Total 0.4 mg/dL (0.2-1.3); Blood Urea Nitrogen 19 mg/dL (9-20); Calcium 9.6 mg/dL (8.4-10.2); Carbon Dioxide 33 mmol/L (22-32); Chloride 102 mmol/L (98-107); Cholesterol 119 mg/dL (140-199); Estimated Glomerular Filt Rate > 60.0 mL/min (>60); Globulin 2.3 g/dL (1.7-4.1); Glucose 146 mg/dL (80-110); HDL Cholesterol 48 mg/dL (40-60); HEMOLYSIS 16 (0-50); LDL Cholesterol Calculated 56 mg/dL (<100); Potassium 4.7 mmol/L (3.4-5.1); Sodium 138 mmol/L (137-145); Total Protein 6.3 g/dL (6.3-8.2); Triglycerides 76 mg/dL (35-150)
== END ==
PROVIDERS: PCP Internal Medicine; Referring Provider Internal Medicine; Visit Provider Internal Medicine
DX: E78.2 Mixed hyperlipidemia (principal)
CPT/HCPCS: 36415; 80053; 80061

== ENCOUNTER → 2020-12-10 15:25 | Outpatient (CLI) | payer MEDICARE, OTHER, SELFPAY ==
[2020-12-10] MEDS: COVID-19 VACC #1, MRNA(MOD) 100 MCG/0.5 ML VIAL IM (15:30)
== END ==
PROVIDERS: PCP Internal Medicine; Visit Provider Internal Medicine
DX: Z23 Encounter for immunization (principal)
CPT/HCPCS: 0011A; 91301

== ENCOUNTER → 2020-12-14 09:59 | Outpatient (CLI) | payer MEDICARE, OTHER, SELFPAY ==
[2020-12-14 11:20] LABS: Hemoglobin A1C% w Est Avg Glu 6.9 % (4.0-6.0)
[2020-12-14 11:27] LABS: Add Manual Diff / Slide Review NO; Alanine Aminotransferase 17 IU/L (<50); Albumin 3.9 g/dL (3.5-5.0); Albumin Globulin Ratio 1.6 (1.0-2.8); Alkaline Phosphatase 73 U/L (38-126); BUN Creatinine Ratio 14.4 (6-22); Basophils Absolute Auto 0 /uL (0-100); Basophils Percent Auto 0.8 % (0-2); Bilirubin Total 0.2 mg/dL (0.2-1.3); Blood Urea Nitrogen 13 mg/dL (9-20); Calcium 9.1 mg/dL (8.4-10.2); Carbon Dioxide 33 mmol/L (22-32); Chloride 101 mmol/L (98-107); Cholesterol 107 mg/dL (140-199); Eosinophils Absolute Auto 100 /uL (0-450); Eosinophils Percent Auto 1.4 % (2-4); Estimated Glomerular Filt Rate > 60.0 mL/min (>60); Globulin 2.4 g/dL (1.7-4.1); Glucose 138 mg/dL (80-110); HDL Cholesterol 42 mg/dL (40-60); HEMOLYSIS < 15 (0-50); Hematocrit 42.2 % (41-53); Hemoglobin 14.5 g/dL (13.5-17.5); LDL Cholesterol Calculated 52 mg/dL (<100); Lymphocytes Absolute Auto 1200 /uL (1100-4500); Lymphocytes Percent Auto 20.7 % (25-40); Mean Corpuscular HGB Conc 34.3 % (30-36); Mean Corpuscular Hemoglobin 30.7 PG (26-34); Mean Corpuscular Volume 89.5 fL (80-100); Monocytes Absolute Auto 400 /uL (0-900); Monocytes Percent Auto 7.2 % (3-14); Neutrophils Absolute Auto 4200 /uL (1500-7000); Neutrophils Percent Auto 69.9 % (50-75); Platelet Count 185 X10^3/uL (150-400); Potassium 4.6 mmol/L (3.4-5.1); Red Blood Cell Count 4.72 X10^6/uL (4.5-5.9); Red Cell Distribution Width 13.1 % (11.6-14.8); Sodium 136 mmol/L (137-145); Total Protein 6.3 g/dL (6.3-8.2); Triglycerides 63 mg/dL (35-150)
[2020-12-14 11:42] LABS: Aspartate Aminotransferase 26 IU/L (17-59)
[2020-12-14 12:13] LABS: TSH w/ Reflex to FT4 1.56 uIU/mL (0.47-4.68)
== END ==
PROVIDERS: PCP Internal Medicine; Referring Provider Internal Medicine; Visit Provider Internal Medicine
DX: I10 Essential (primary) hypertension (principal); E11.9 Type 2 diabetes mellitus without complications; E03.9 Hypothyroidism, unspecified; E78.00 Pure hypercholesterolemia, unspecified
CPT/HCPCS: 36415; 80053; 80061; 83036; 84443; 85025

== ENCOUNTER → 2021-01-07 15:23 | Outpatient (CLI) | payer MEDICARE, OTHER, SELFPAY ==
[2021-01-07] MEDS: COVID-19 VACC #2, MRNA(MOD) 100 MCG/0.5 ML VIAL IM (15:30)
== END ==
PROVIDERS: PCP Internal Medicine; Visit Provider Internal Medicine
DX: Z23 Encounter for immunization (principal)
CPT/HCPCS: 0012A; 91301

== ENCOUNTER 2021-05-18 16:56 | Observation (INO) | payer MEDICARE, OTHER, SELFPAY ==
[2021-05-18] VITALS (20 sets, daily range): BP systolic 139–190; BP diastolic 63–96; PULSE 45–71; RESP 11–32; TEMP 36.8; O2SAT 96–100
--- NOTE | 2021-05-18 17:04 | DI.CT.S_ITS ---
PROCEDURE: CT STROKE INDICATIONS: visual field loss [id number] TECHNIQUE: Noncontrast 4.5 mm thick angled axial sections acquired from the foramen magnum to the vertex, with coronal reformats. For radiation dose reduction, the following was used: automated exposure control, adjustment of mA and/or kV according to patient size. COMPARISON: [facility], CT, CT STROKE, 06/10/2020, 17:43. [facility], CT, CT STROKE, 06/02/2020, 20:07. FINDINGS: Image quality: Excellent. CSF spaces: Basal cisterns are patent. No extra-axial fluid collections. The ventricles are stable in size and shape. Brain: No acute intracranial bleeds or masses. There is cerebral volume loss for age, with resultant ventricular and sulcal prominence. There are periventricular and deep white matter chronic small vessel ischemic changes. There is intracranial internal carotid artery atherosclerosis. There is encephalomalacia involving the right parietal occipital region compatible with remote infarction. Stable appearance of density involving the bilateral intracranial internal carotid arteries, middle cerebral arteries, and posterior circulation. Stable punctate density over the anterior margin of the cerebellum. Skull and face: Calvarium and visualized facial bones appear intact, without suspicious lesions. Sinuses: Bilateral maxillary sinus mucosal thickening versus mucoceles.Remainder of the paranasal sinuses appear clear. Mastoid air cells are well-aerated. IMPRESSION: CT head without acute intracranial abnormalities. Encephalomalacia involving the right parietal occipital region compatible with remote infarction. Age related senescent changes and sequela of chronic small vessel ischemic disease. Findings were discussed with Dr. Cadet of the emergency department at 1725hrs. This study fulfills neurological imaging criteria for inclusion or exclusion of acute stroke therapies based on available published neurological guidelines. Dictated by: Niles Flores M.D. on 05/18/2021 at 17:18 Approved by: Niles Flores M.D. on 05/18/2021 at 17:28
--- NOTE | 2021-05-18 17:25 | ED_ITS ---
HPI - Neuro Symptoms/Deficit General Chief Complaint: Neuro Symptoms/Deficit Stated Complaint: stroke symptoms Time Seen by Provider: 05/18/21 17:25 Source: patient Mode of arrival: Ambulatory History of Present Illness HPI Narrative: This is a 66-year-old male who comes emergency department with complaint of vision change that started at 4:35 p.m. today. Patient states that he developed vision in the left lower side of his vision. He has not had any resolution. He had mild headache earlier. He denies any difficulty with speech, he denies any numbness, tingling or weakness. No difficulty with gait. No chest pain or shortness of breath, no nausea or vomiting, no other GI or urinary symptoms. Patient denies any pain in his eye itself. Patient had similar symptoms almost exactly a year ago but describes the vision changes si gnificantly worsened that that fully occluded his vision on the left side. At that time he received tPA and was transferred to [facility]. Patient states he developed a bleed after tPA. Patient states that they observed him but did not do any additional intervention. He was discharged home on Plavix but is currently only taking aspirin daily. He does have diabetes, hypertension and BPH as well as hypothyroidism. Patient denies any recent surgeries. On Anticoagulants: No (81mg asa) Related Data Home Medications Medication Instructions Recorded Confirmed levothyroxine 25 mcg tablet #0 09/24/17 lisinopril 10 mg tablet #0 09/24/17 omeprazole 20 mg capsule,delayed #0 09/24/17 release metformin 1,000 mg tablet 1,000 mg PO BID 06/02/20 06/02/20 Previous Rx's Medication Instructions Recorded clopidogrel 75 mg tablet 75 mg PO DAILY #30 tab 06/10/20 Allergies Allergy/AdvReac Type Severity Reaction Status Date / Time No Known Allergies Allergy Verified 06/10/20 19:29 Review of Systems Review of Systems ROS Unobtainable: All systems reviewed & are unremarkable except as noted in HPI and below Hematologic/Lymphatic On Anticoagulants: No (81mg asa) Patient History Social History Smoking Status: Former smoker Smoking Status: Former smoker alcohol intake frequency: 0-2 drinks per day Substance Use Type: does not use Exam Narrative Exam Narrative: GEN: well nourished, well appearing male, alert and oriented x 3, patient appears to be in mild distress. HEENT: Atraumatic, pupils are equal round reactive to light, extraocular movements are intact, nares are clear, TMs are clear with no fluid, there is no conjunctival pallor. Throat is clear without any exudates, erythema, tonsillar enlargement or uvular deviation, patient has decreased vision in left lower fie lds bilaterally. HEART: Regular rate and rhythm without murmur, clicks, rubs. LUNGS:Lungs clear to auscultation, no wheezes, rales, crackles, chest moves symmetrically ABD:bowel sounds normal, soft, non-tender, no guarding, rebound, rigidity, no masses noted, no hepatosplenomegaly :No CVA tenderness MSCL: Non-tender, no muscle atrophy, muscles strength 5/5 upper and lower extremities, full range of motion, normal gait NEURO:CN 2-12 intact, sensation normal, reflexes 2/4 upper and lower ext remities. finger nose finger test normal, heel ji test normal Initial Vital Signs Initial Vital Signs: Vital Signs Temperature 98.3 F 05/18/21 16:57 Pulse Rate 69 05/18/21 16:57 Respiratory Rate 16 05/18/21 16:57 Blood Pressure 139/63 05/18/21 16:57 Pulse Oximetry 98 05/18/21 16:57 Scores NIH Stroke Scale Level of Conciousness: Alert, keenly responsive Ask month/age: Answers both questions correctly. Open/close eyes, close hand: Performs both tasks correctly Best gaze horizontal: Normal Visual corona: No visual loss Facial palsy: Normal symetrical movement Left arm drift: No drift for full 10 sec Right arm drift: No drift for full 10 sec Left leg drift: No drift for full 5 sec Right leg drift: No drift for full 5 sec Limb ataxia: Absent Sensory on face/arms/legs: Normal, no sensory loss Best language: No aphasia, normal Dysarthria: Normal Extinction or inattention: No abnormality Total NIH Stroke scale score: 0 Course Orders Ordered: ED Orders 05/18/21 17:04 CT Stroke Stat EKG-12 Lead Stat 05/18/21 17:26 Complete Blood Count AUTO DIFF Stat Comprehensive Metabolic Panel Stat Troponin & CK Cardiac Panel Stat 05/18/21 17:28 COVID19 - ADMIT (HARD CANDY B[employer] swab/PCR) Stat 05/18/21 17:56 Urinalysis and Microscopic Stat Urine Drug Screen, Rapid Stat 05/18/21 18:06 CT angio head and neck Stat Sodium Chloride (Normal Saline 0.9%) 1,000 mls @ 150 mls/hr IV CONT BISHNU Last Admin: 05/18/21 17:44 Dose: 150 mls/hr Documented by: MARYBEL Metformin HCl (Metformin Hcl 500 Mg Tablet) 1,000 mg PO 0800,1700 BISHNU Discontinued Medications Aspirin (Aspirin 81 Mg Chew Tab) 324 mg PO NOW ONE Stop: 05/18/21 18:39 Last Admin: 05/18/21 18:59 Dose: 324 mg Documented by: MARYBEL Tamsulosin HCl (Tamsulosin 0.4 Mg Capsule) 0.4 mg PO NOW ONE Stop: 05/18/21 20:10 Reevaluation(s) Reevaluation #1: Patient has had no changes. Consultations Consultation #1: Dr. Mary Carson, evaluated patient on tele stroke via video camera. After long discussion evaluation with patient. Decision was made not to give tPA is patient had a small bleed after tPA in terms of risk versus benefit for level of disability. There was discussion that even though his NIH is 1 vision loss can be quite disabling but the risk was considered to be real in terms of potential rebleed. CT angio was also obtained, this was shared with tele stroke as well. Consultation #2: Case discussed with ИВАН Mary, who accepts for hospitalist service for admission. Patient boarding in the department until sister's bed availability occurs. Vital Signs Vital signs: Vital Signs - 8 hr 05/18/21 16:57 05/18/21 17:10 05/18/21 17:30 Temperature 98.3 F Pulse Rate 69 71 64 Respiratory Rate 16 32 H 16 Blood Pressure 139/63 153/79 H Pulse Oximetry 98 97 96 05/18/21 18:00 05/18/21 18:30 05/18/21 18:55 Temperature Pulse Rate 59 L 68 63 Respiratory Rate 14 28 H 13 Blood Pressure 158/81 H 174/85 H 171/81 H Pulse Oximetry 96 99 100 05/18/21 19:00 05/18/21 19:30 05/18/21 20:00 Temperature Pulse Rate 67 53 L 52 L Respiratory Rate 21 12 12 Blood Pressure 169/87 H 162/89 H 170/86 H Pulse Oximetry 98 97 97 MDM - Neuro Symptoms/Deficit Lab Data Result diagrams: 05/18/21 17:26 05/18/21 17:26 Labs: Lab Results 05/18/21 05/18/21 05/18/21 Range/Units 17:26 17:26 17:28 WBC 6.4 (4.5-11.0) X10^3/uL RBC 4.47 L (4.5-5.9) X10^6/uL Hgb 13.9 (13.5-17.5) g/dL Hct 40.5 L (41-53) % MCV 90.6 (80-100) fL MCH 31.1 (26-34) PG MCHC 34.4 (30-36) % RDW 13.1 (11.6-14.8) % Plt Count 209 (150-400) X10^3/uL Neut % (Auto) 69.1 (50-75) % Lymph % (Auto) 21.0 L (25-40) % [place] % (Auto) 6.4 (3-14) % Eos % (Auto) 2.6 (2-4) % Baso % (Auto) 0.9 (0-2) % Neut # (Auto) 4400 (0807-7496) /uL Lymph # (Auto) 1300 (8518-6479) /uL [place] # (Auto) 400 (0-900) /uL Eos # (Auto) 200 (0-450) /uL Baso # (Auto) 100 (0-100) /uL Sodium 138 (137-145) mmol/L Potassium 4.2 (3.4-5.1) mmol/L Chloride 104 (98-107) mmol/L Carbon Dioxide 29 (22-32) mmol/L BUN 17 (9-20) mg/dL Creatinine 0.89 (0.66-1.25) mg/dL Estimated GFR > 60.0 (>60) mL/min BUN/Creatinine Ratio 19.1 (6-22) Glucose 206 H (80-110) mg/dL Calcium 8.8 (8.4-10.2) mg/dL Total Bilirubin 0.3 (0.2-1.3) mg/dL AST 19 (17-59) IU/L ALT 20 (<50) IU/L Alkaline Phosphatase 69 (38-126) U/L Total Creatine Kinase 113 (55-170) U/L CK-MB (CK-2) 2.36 (<2.37) ng/mL CK-MB (CK-2) Rel Index 2.1 (1.5-5.0) % Troponin I < 0.012 (0.01-0.034) ng/mL Total Protein 5.7 L (6.3-8.2) g/dL Albumin 3.7 (3.5-5.0) g/dL Globulin 2.0 (1.7-4.1) g/dL Albumin/Globulin Ratio 1.9 (1.0-2.8) Urine Color Urine Appearance Urine pH (4.5-8.0) Ur Specific Shafer (1.000-1.035) Urine Protein (Negative) Urine Glucose (UA) (Negative) g/dL Urine Ketones (NEGATIVE) Urine Occult Blood (Negative) Urine Nitrate (Negative) Urine Bilirubin (NEGATIVE) Urine Urobilinogen (0.2) E.U./dL Ur Leukocyte Esterase (NEGATIVE) Urine RBC (0-5/HPF) Urine WBC (0-5/HPF) Urine Bacteria (None) Ur Culture Indicated? U Opiates 300ng/mL cut (Negative) Ur Oxycodone Screen (Negative) Urine Methadone Screen (Negative) Ur Barbiturates Screen (Negative) U Tricyclic Antidepress (Negative) Ur Phencyclidine Scrn (Negative) Ur Amphetamines Screen (Negative) U Methamphetamines Scrn (Negative) Ur MDMA Scrn (Ecstasy) (Negative) U Benzodiazepines Scrn (Negative) Urine Cocaine Screen (Negative) U Marijuana (THC) Screen (Negative) SARS-CoV-2 (PCR) Negative (Negative) 05/18/21 05/18/21 Range/Units 17:56 17:56 WBC (4.5-11.0) X10^3/uL RBC (4.5-5.9) X10^6/uL Hgb (13.5-17.5) g/dL Hct (41-53) % MCV (80-100) fL MCH (26-34) PG MCHC (30-36) % RDW (11.6-14.8) % Plt Count (150-400) X10^3/uL Neut % (Auto) (50-75) % Lymph % (Auto) (25-40) % [place] % (Auto) (3-14) % Eos % (Auto) (2-4) % Baso % (Auto) (0-2) % Neut # (Auto) (0875-5252) /uL Lymph # (Auto) (1423-1303) /uL [place] # (Auto) (0-900) /uL Eos # (Auto) (0-450) /uL Baso # (Auto) (0-100) /uL Sodium (137-145) mmol/L Potassium (3.4-5.1) mmol/L Chloride (98-107) mmol/L Carbon Dioxide (22-32) mmol/L BUN (9-20) mg/dL Creatinine (0.66-1.25) mg/dL Estimated GFR (>60) mL/min BUN/Creatinine Ratio (6-22) Glucose (80-110) mg/dL Calcium (8.4-10.2) mg/dL Total Bilirubin (0.2-1.3) mg/dL AST (17-59) IU/L ALT (<50) IU/L Alkaline Phosphatase (38-126) U/L Total Creatine Kinase (55-170) U/L CK-MB (CK-2) (<2.37) ng/mL CK-MB (CK-2) Rel Index (1.5-5.0) % Troponin I (0.01-0.034) ng/mL Total Protein (6.3-8.2) g/dL Albumin (3.5-5.0) g/dL Globulin (1.7-4.1) g/dL Albumin/Globulin Ratio (1.0-2.8) Urine Color Yellow Urine Appearance Clear Urine pH 5.5 (4.5-8.0) Ur Specific [place]fer 1.025 (1.000-1.035) Urine Protein Negative (Negative) Urine Glucose (UA) Negative (Negative) g/dL Urine Ketones Negative (NEGATIVE) Urine Occult Blood Negative (Negative) Urine Nitrate Negative (Negative) Urine Bilirubin Negative (NEGATIVE) Urine Urobilinogen 0.2 (0.2) E.U./dL Ur Leukocyte Esterase Negative (NEGATIVE) Urine RBC None seen (0-5/HPF) Urine WBC None seen (0-5/HPF) Urine Bacteria None seen (None) Ur Culture Indicated? Cult not indicated U Opiates 300ng/mL cut Negative (Negative) Ur Oxycodone Screen Negative (Negative) Urine Methadone Screen Negative (Negative) Ur Barbiturates Screen Negative (Negative) U Tricyclic Antidepress Negative (Negative) Ur Phencyclidine Scrn Negative (Negative) Ur Amphetamines Screen Negative (Negative) U Methamphetamines Scrn Negative (Negative) Ur MDMA Scrn (Ecstasy) Negative (Negative) U Benzodiazepines Scrn Negative (Negative) Urine Cocaine Screen Negative (Negative) U Marijuana (THC) Screen Positive H (Negative) SARS-CoV-2 (PCR) (Negative) Imaging Data CTA - brain/neck: Radiologist's Impression: [address] [id number] Scan ReportSigned Patient: Maxi Osorio MMR#: [id number]: 3Acct:[id number]/Sex: 66 / MDate of Service: 05/18/21Loc: EDAccession Number: [id number] Procedure: CT angio head and neck Ordering Provider: Shirley Cadet D.O. PROCEDURE: CT ANGIO HEAD AND NECK INDICATIONS: vision loss TECHNIQUE: After the administration of intravenous contrast, 1 mm thick sections acquired from the aortic arch through the [place]. Post-contrast 4.5 mm thick sections then re-acquired from the foramen magnum to the vertex. COMPARISON: [facility], CT, CT ANGIO HEAD AND NECK, 06/02/2020, 20:13. FINDINGS: Cerebral CT Angiogram: Internal carotid arteries: No acute findings. Intracranial ICA are patent with no significant stenosis. No occlusion. No aneurysm. Anterior cerebral arteries: Unremarkable. No significant stenosis. No occlusion. No aneurysm. Middle cerebral arteries: Unremarkable. No significant stenosis. No occlusion. No aneurysm. Posterior cerebral arteries: Unremarkable. No significant stenosis. No occlusion. No aneurysm. Basilar artery: Unremarkable. No significant stenosis. No occlusion. No aneurysm. Vertebral arteries: Left vertebral artery dominance. Mild atherosclerotic plaq ue in the intradural left vertebral artery present results in mild focal stenosis. Dural venous sinuses: Unremarkable given phase of enhancement. Other: Arterial phase brain parenchyma is unremarkable. Neck CT Angiogram: Internal carotid arteries: Mild atherosclerotic plaque present in the proximal left ICA without hemodynamically significant stenosis utilizing NASCET criteria. Common carotid arteries: Unremarkable. No significant stenosis. No dissection or occlusion. External carotid arteries: Unremarkable. No occlusion. Vertebral arteries: Left vertebral artery dominance. No occlusion or stenosis. Other: None. Aortic Arch and Mediastinum: Partially visualized aortic arch unremarkable without evidence of aneurysm. Origins of the great vessels unremarkable. IMPRESSION: 1. No evidence of hemodynamically significant stenosis, large vessel occlusion, aneurysm or vascular malformation. No change the prior exam. 2. Left vertebral artery dominance Any quantitative measurements of stenosis were performed using NASCET criteria. Dictated by: Gonzalo Ballesteros M.D. on 05/18/2021 at 18:14 Approved by: Gonzalo Ballesteros M.D. on 05/18/2021 at 18:24 CT scan - head: Radiologist's Impression: Maxi Osorio 66 M [address] [id number] Scan ReportSigned Patient: Maxi Osorio MMR#: [id number]: [id number]:[id number]/Sex: 66 / MDate of Service: 05/18/21Loc: EDAccession Number: [id number] Procedure: CT Stroke Ordering Provider: Shirley Cadet D.O. PROCEDURE: CT STROKE INDICATIONS: visual field loss [id number] TECHNIQUE: Noncontrast 4.5 mm thick angled axial sections acquired from the foramen magnum to the vertex, with coronal reformats. For radiation dose reduction, the following was used: automated exposure control, adjustment of mA and/or kV according to patient size. COMPARISON: [facility], CT, CT STROKE, 06/10/2020, 17:43. [facility], CT, CT STROKE, 06/02/2020, 20:07. FINDINGS: Image quality: Excellent. CSF spaces: Basal cisterns are patent. No extra-axial fluid collections. The ventricles are stable in size and shape. Brain: No acute intracranial bleeds or masses. There is cerebral volume loss for age, with resultant ventricular and sulcal prominence. There are periventricular and deep white matter chronic small vessel ischemic changes. There is intracranial inte rnal carotid artery atherosclerosis. There is encephalomalacia involving the right parietal occipital region compatible with remote infarction. Stable appearance of density involving the bilateral intracranial internal carotid arteries, middle cerebral arteries, and posterior circulation. Stable punctate density over the anterior margin of the cerebellum. Skull and face: Calvarium and visualized facial bones appear intact, without suspicious lesions. Sinuses: Bilateral maxillary sinus mucosal thickening versus mucoceles.Remainder of the paranasal sinuses appear clear. Mastoid air cells are well-aerated. IMPRESSION: CT head without acute intracranial abnormalities. Encephalomalacia involving the right parietal occipital region compatible with remote infarction. Age related senescent changes and sequela of chronic small vessel ischemic disease. Findings were discussed with Dr. Cadet of the emergency department at 1725hrs. This study fulfills neurological imaging criteria for inclusion or exclusion of acute stroke therapies based on available published neurological guidelines. Dictated by: Niles Flores M.D. on 05/18/2021 at 17:18 Approved by: Niles Flores M.D. on 05/18/2021 at 17:28 Stroke Core Measures Contraindications for TPA in CVA: History of ICH (after tpa, discussion with telestroke and decision made with patient not to given tpa.) Critical Care Time Critical Care Time Critical Care Time: Yes Total Critical Care Time: 65 Attestation: The high probability of a clinically significant, sudden or life threatening deterioration of the [neurologic] system(s) required my full and direct attention, intervention and personal management. The aggregate critical care time was [] minutes. This time is in addition to time spent performing reported procedures but includes the following: [x] Data Review and interpretation [x] Patient assessment and monitoring of vital signs [x] Documentation [x] Medication orders and management Discharge Plan Departure Patient Disposition: Admitted as Observation Clinical Impression: Acute CVA (cerebrovascular accident) Prescriptions: No Action lisinopril 10 MG tablet Qty: 0 RF: 0 omeprazole 20 MG capsule,delayed release(DR/EC) Qty: 0 RF: 0 levothyroxine 25 MCG tablet Qty: 0 RF: 0 clopidogrel 75 mg tablet 75 mg PO DAILY Qty: 30 RF: 0 metformin 1,000 mg Tablet 1,000 mg PO BID RF: 0 Referrals: Pasha Lam MD [Primary Care Provider] -
[2021-05-18 17:37] LABS: Add Manual Diff / Slide Review NO; Basophils Absolute Auto 100 /uL (0-100); Basophils Percent Auto 0.9 % (0-2); Eosinophils Absolute Auto 200 /uL (0-450); Eosinophils Percent Auto 2.6 % (2-4); Hematocrit 40.5 % (41-53); Hemoglobin 13.9 g/dL (13.5-17.5); Lymphocytes Absolute Auto 1300 /uL (1100-4500); Mean Corpuscular HGB Conc 34.4 % (30-36); Mean Corpuscular Hemoglobin 31.1 PG (26-34); Mean Corpuscular Volume 90.6 fL (80-100); Monocytes Absolute Auto 400 /uL (0-900); Monocytes Percent Auto 6.4 % (3-14); Neutrophils Absolute Auto 4400 /uL (1500-7000); Neutrophils Percent Auto 69.1 % (50-75); Platelet Count 209 X10^3/uL (150-400); Red Blood Cell Count 4.47 X10^6/uL (4.5-5.9); Red Cell Distribution Width 13.1 % (11.6-14.8); White Blood Cell Count 6.4 X10^3/uL (4.5-11.0)
[2021-05-18] MEDS: SODIUM CHLORIDE 0.9% 1,000 ML 150 ML IV (17:44)
[2021-05-18 17:56] LABS: Alanine Aminotransferase 20 IU/L (<50); Albumin 3.7 g/dL (3.5-5.0); Albumin Globulin Ratio 1.9 (1.0-2.8); Alkaline Phosphatase 69 U/L (38-126); Aspartate Aminotransferase 19 IU/L (17-59); BUN Creatinine Ratio 19.1 (6-22); Bilirubin Total 0.3 mg/dL (0.2-1.3); Blood Urea Nitrogen 17 mg/dL (9-20); Calcium 8.8 mg/dL (8.4-10.2); Carbon Dioxide 29 mmol/L (22-32); Chloride 104 mmol/L (98-107); Creatine Kinase 113 U/L (55-170); Estimated Glomerular Filt Rate > 60.0 mL/min (>60); Glucose 206 mg/dL (80-110); HEMOLYSIS < 15 (0-50); Potassium 4.2 mmol/L (3.4-5.1); Sodium 138 mmol/L (137-145); Total Protein 5.7 g/dL (6.3-8.2)
[2021-05-18 18:03] LABS: Bacteria Urine None Seen; RBC Urine None Seen (0-5/HPF); WBC Urine None Seen (0-5/HPF)
[2021-05-18 18:06] LABS: Appearance Urine UA CLEAR; Bilirubin Urine UA NEGATIVE (NEGATIVE); Color Urine UA YELLOW; Glucose Urine UA NEGATIVE (Negative); Ketones Urine UA NEGATIVE (NEGATIVE); Leukocyte Esterase Urine UA NEGATIVE (NEGATIVE); Nitrite Urine UA NEGATIVE (Negative); Occult Blood Urine UA NEGATIVE (Negative); Protein Urine UA NEGATIVE (Negative); Specific Gravity Urine UA 1.025 (1.000-1.035); Urobilinogen Urine UA 0.2 E.U./dL (0.2); pH Urine UA 5.5 (4.5-8.0)
--- NOTE | 2021-05-18 18:06 | DI.CT.S_ITS ---
PROCEDURE: CT ANGIO HEAD AND NECK INDICATIONS: vision loss TECHNIQUE: After the administration of intravenous contrast, 1 mm thick sections acquired from the aortic arch through the [place]. Post-contrast 4.5 mm thick sections then re-acquired from the foramen magnum to the vertex. COMPARISON: [facility], CT, CT ANGIO HEAD AND NECK, 06/02/2020, 20:13. FINDINGS: Cerebral CT Angiogram: Internal carotid arteries: No acute findings. Intracranial ICA are patent with no significant stenosis. No occlusion. No aneurysm. Anterior cerebral arteries: Unremarkable. No significant stenosis. No occlusion. No aneurysm. Middle cerebral arteries: Unremarkable. No significant stenosis. No occlusion. No aneurysm. Posterior cerebral arteries: Unremarkable. No significant stenosis. No occlusion. No aneurysm. Basilar artery: Unremarkable. No significant stenosis. No occlusion. No aneurysm. Vertebral arteries: Left vertebral artery dominance. Mild atherosclerotic plaque in the intradural left vertebral artery present results in mild focal stenosis. Dural venous sinuses: Unremarkable given phase of enhancement. Other: Arterial phase brain parenchyma is unremarkable. Neck CT Angiogram: Internal carotid arteries: Mild atherosclerotic plaque present in the proximal left ICA without hemodynamically significant stenosis utilizing NASCET criteria. Common carotid arteries: Unremarkable. No significant stenosis. No dissection or occlusion. External carotid arteries: Unremarkable. No occlusion. Vertebral arteries: Left vertebral artery dominance. No occlusion or stenosis. Other: None. Aortic Arch and Mediastinum: Partially visualized aortic arch unremarkable without evidence of aneurysm. Origins of the great vessels unremarkable. IMPRESSION: 1. No evidence of hemodynamically significant stenosis, large vessel occlusion, aneurysm or vascular malformation. No change the prior exam. 2. Left vertebral artery dominance Any quantitative measurements of stenosis were performed using NASCET criteria. Dictated by: Gonzalo Ballesteros M.D. on 05/18/2021 at 18:14 Approved by: Gonzalo Ballesteros M.D. on 05/18/2021 at 18:24
[2021-05-18 18:07] LABS: Troponin I < 0.012 ng/mL (0.01-0.034)
[2021-05-18 18:11] LABS: CKMB % Relative Index 2.1 % (1.5-5.0); Creatine Kinase MB 2.36 ng/mL (<2.37)
[2021-05-18 18:20] LABS: Culture Indicated Urine Cult Not Indicated
[2021-05-18 18:54] LABS: UR Morphine/Opiate cutoff 300 Negative (Negative); Ur Creatinine Normal (Normal); Ur Specific Gravity Normal (Normal); Urine Amphetamines Negative (Negative); Urine Barbiturates Negative (Negative); Urine Benzodiazepines Negative (Negative); Urine Cocaine Negative (Negative); Urine MDMA Negative (Negative); Urine Methadone Negative (Negative); Urine Methamphetamines Negative (Negative); Urine Phencyclidine Negative (Negative); Urine Tetrahydrocannabinol Positive (Negative); Urine Tricyclic Antidepressant Negative (Negative); Urine pH Normal (Normal)
[2021-05-18 18:55] LABS: Urine Oxycodone Negative (Negative)
[2021-05-18] MEDS: ASPIRIN 81 MG CHEW TAB 324 MG PO (18:59)
[2021-05-18 19:12] LABS: COVID19 - ADMIT (NP swab/PCR) Negative (Negative)
[2021-05-18] MEDS: TAMSULOSIN 0.4 MG CAPSULE PO (20:47)
[2021-05-18 22:32] LABS: Magnesium 1.8 mg/dL (1.6-2.3)
[2021-05-18 22:37] LABS: Hemoglobin A1C% w Est Avg Glu 6.7 % (4.0-6.0)
--- NOTE | 2021-05-18 22:37 | PM.HP.1 ---
History of Present Illness History of Present Illness Date Patient Seen: 05/18/21 Time Patient Seen: 20:45 Date of Onset of Symptoms: 05/18/21 Chief complaint: stroke symptoms Narrative: Maxi Osorio is a 66-year-old male with hypertension, hypothyroidism, diabetes type 2, and a 1 year history of having had a right-sided CVA. Tonight he presents with a vision loss of the left lower side at approximately 4:35 p.m. 05/18/2021. Apparently while he was in the emergency department he did not have any improvement in his vision. He does endorse having had a headache. Denies any dizziness, difficulty speaking or swallowing, nasal congestion, cough, dyspnea, chest pain, nausea or vomiting, dysuria, diarrhea or constipation. 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 Patient had similar symptoms almost exactly a year ago but describes the vision changes significantly worsened that fully occluded his vision on the left side. At that time he received tPA at [facility] and was transferred to [facility]. Patient states he developed a bleed after tPA. Patient states that they observed him but did not do any additional intervention, but did place an implantable loop recorder. He was discharged home on Plavix but is currently only taking aspirin [address] of the head and head and neck CT a ordered by the ED did not indicate any acute process. Patient is afebrile, blood pressure 171/86, heart rate 45, respiratory rate 11, oxygen saturation 98% on room air, he weighs 87 kg. WBC is 6.4, RBC 4.47, hemoglobin 13.9, hematocrit 40.5, platelet count 209, his BMP is essentially normal though his glucose was 206, hemoglobin A1c is 6.7, liver enzymes within normal limits, UA is negative for UTI, urine toxicology screen is only positive for marijuana to which the patient admits 2, and COVID-19 PCR is negative. Patient History Medical History Acute CVA (cerebrovascular accident) Diabetes type 2, uncontrolled Essential hypertension History of anal fissures Homonymous hemianopsia Hypothyroidism Surgical History S/P repair of hydrocele Family & Social History Family History Father Renal failure Diabetes type 2, uncontrolled Myocardial infarction Heart failure Mother Heart failure Tobacco & Substance use: Smoking Status Former smoker alcohol intake frequency 0-2 drinks per day Substance Use Type marijuana once weekly Medical History Acute CVA (cerebrovascular accident) Diabetes type 2, uncontrolled Essential hypertension History of anal fissures Homonymous hemianopsia Hypothyroidism Surgical History S/P repair of hydrocele Family History Father Renal failure Diabetes type 2, uncontrolled Myocardial infarction Heart failure Mother Heart failure Social History Smoking Status: Former smoker Meds Home Medications and Allergies Home Medications Medication Instructions Recorded Confirmed Type levothyroxine 25 mcg tablet #0 09/24/17 History lisinopril 10 mg tablet #0 09/24/17 History omeprazole 20 mg capsule,delayed #0 09/24/17 History release metformin 1,000 mg tablet 1,000 mg PO BID 06/02/20 06/02/20 History clopidogrel 75 mg tablet 75 mg PO DAILY #30 tab 06/10/20 Rx Allergies Allergy/AdvReac Type Severity Reaction Status Date / Time No Known Allergies Allergy Verified 06/10/20 19:29 Review of Systems Review of Systems ROS: Yes All systems reviewed with the patient and are negative except as otherwise documented Exam Vital Signs (past 8 hours): - 05/18/21 16:57 05/18/21 17:10 05/18/21 17:30 Temperature 98.3 F Pulse Rate 69 71 64 Respiratory Rate 16 32 H 16 Blood Pressure 139/63 153/79 H Pulse Oximetry 98 97 96 05/18/21 18:00 05/18/21 18:30 05/18/21 18:55 Temperature Pulse Rate 59 L 68 63 Respiratory Rate 14 28 H 13 Blood Pressure 158/81 H 174/85 H 171/81 H Pulse Oximetry 96 99 100 05/18/21 19:00 05/18/21 19:30 05/18/21 20:00 Temperature Pulse Rate 67 53 L 52 L Respiratory Rate 21 12 12 Blood Pressure 169/87 H 162/89 H 170/86 H Pulse Oximetry 98 97 97 05/18/21 20:30 05/18/21 20:31 05/18/21 21:00 Temperature Pulse Rate 50 L 51 L 54 L Respiratory Rate 13 13 15 Blood Pressure 174/81 H 180/89 H Pulse Oximetry 97 98 98 05/18/21 21:30 05/18/21 21:31 Temperature Pulse Rate 47 L 49 L Respiratory Rate 12 13 Blood Pressure 171/85 H Pulse Oximetry 96 97 Oxygen Delivery Method Room Air Narrative Exam Narrative: Gen: Alert, oriented, well-developed 66 y.o. male, appears younger than stated age HEENT: normocephalic, atraumatic, conjunctiva clear, sclera non-icteric, oral mucosa pink and moist Neck: supple, full ROM, no JVD, trachea is midline Resp: Lungs CTA, non-labored breathing CV: RRR, no murmur or rubs Abd: soft, non-tender, normoactive BTs Skin: no lesions or rashes, dry and intact Neuro: Alert and oriented X 4 w/no focal deficits. Speech clear and coherent. Extremities: moves all 4 extremities, is ambulatory, negative Jake?s sign Psyche: normal mood and affect. Objective ECG Impression: Normal EKG as interpreted by me. Labs Result Diagrams: 05/18/21 17:26 05/18/21 17:26 Labs: Laboratory Results - last 24 hr 05/18/21 05/18/21 05/18/21 17:26 17:26 17:26 WBC 6.4 RBC 4.47 L Hgb 13.9 Hct 40.5 L MCV 90.6 MCH 31.1 MCHC 34.4 RDW 13.1 Plt Count 209 Neut % (Auto) 69.1 Lymph % (Auto) 21.0 L [place] % (Auto) 6.4 Eos % (Auto) 2.6 Baso % (Auto) 0.9 Neut # (Auto) 4400 Lymph # (Auto) 1300 [place] # (Auto) 400 Eos # (Auto) 200 Baso # (Auto) 100 Sodium 138 Potassium 4.2 Chloride 104 Carbon Dioxide 29 BUN 17 Creatinine 0.89 Estimated GFR > 60.0 BUN/Creatinine Ratio 19.1 Glucose 206 H Calcium 8.8 Magnesium 1.8 Total Bilirubin 0.3 AST 19 ALT 20 Alkaline Phosphatase 69 Total Creatine Kinase 113 CK-MB (CK-2) 2.36 CK-MB (CK-2) Rel Index 2.1 Troponin I < 0.012 Total Protein 5.7 L Albumin 3.7 Globulin 2.0 Albumin/Globulin Ratio 1.9 Urine Color Urine Appearance Urine pH Ur Specific [place] Urine Protein Urine Glucose (UA) Urine Ketones Urine Occult Blood Urine Nitrate Urine Bilirubin Urine Urobilinogen Ur Leukocyte Esterase Urine RBC Urine WBC Urine Bacteria Ur Culture Indicated? U Opiates 300ng/mL cut Ur Oxycodone Screen Urine Methadone Screen Ur Barbiturates Screen U Tricyclic Antidepress Ur Phencyclidine Scrn Ur Amphetamines Screen U Methamphetamines Scrn Ur MDMA Scrn (Ecstasy) U Benzodiazepines Scrn Urine Cocaine Screen U Marijuana (THC) Screen SARS-CoV-2 (PCR) 05/18/21 05/18/21 05/18/21 17:28 17:56 17:56 WBC RBC Hgb Hct MCV MCH MCHC RDW Plt Count Neut % (Auto) Lymph % (Auto) [place] % (Auto) Eos % (Auto) Baso % (Auto) Neut # (Auto) Lymph # (Auto) [place] # (Auto) Eos # (Auto) Baso # (Auto) Sodium Potassium Chloride Carbon Dioxide BUN Creatinine Estimated GFR BUN/Creatinine Ratio Glucose Calcium Magnesium Total Bilirubin AST ALT Alkaline Phosphatase Total Creatine Kinase CK-MB (CK-2) CK-MB (CK-2) Rel Index Troponin I Total Protein Albumin Globulin Albumin/Globulin Ratio Urine Color Yellow Urine Appearance Clear Urine pH 5.5 Ur Specific [place] 1.025 Urine Protein Negative Urine Glucose (UA) Negative Urine Ketones Negative Urine Occult Blood Negative Urine Nitrate Negative Urine Bilirubin Negative Urine Urobilinogen 0.2 Ur Leukocyte Esterase Negative Urine RBC None seen Urine WBC None seen Urine Bacteria None seen Ur Culture Indicated? Cult not indicated U Opiates 300ng/mL cut Negative Ur Oxycodone Screen Negative Urine Methadone Screen Negative Ur Barbiturates Screen Negative U Tricyclic Antidepress Negative Ur Phencyclidine Scrn Negative Ur Amphetamines Screen Negative U Methamphetamines Scrn Negative Ur MDMA Scrn (Ecstasy) Negative U Benzodiazepines Scrn Negative Urine Cocaine Screen Negative U Marijuana (THC) Screen Positive H SARS-CoV-2 (PCR) Negative Assessment & Plan Assessment & Plan narrative: Maxi Osorio is admitted for further evaluation and treatment of an acute CVA 1. Right sided CVA Cardiac telemetry NIH score greater than 5 no NIH scoring and neuro checks q shift Dual antiplatelet therapy: No Yes initiate clopidogrel 75 mg p.o. daily and aspirin 81 mg p.o. daily MR stroke scheduled for 04/19, may be contraindicated due to presence of loop recorder Complete Echo with bubble study for 05/19 PT/OT/ST evaluation 2. Hypertensive urgency, acute with an admission bp of 139/63, now 171/96, present on admission -Allow for permissive hypertension of 220/110 HR 60 to allow for brain perfusion 3. HLD, ruled out Lipid panel, patient has normal lipids Atorvastatin 40 mg po at bedtime 4. Diabetes type 2 well controlled with an A1c of 6.7 Low dose correctional insulin ACHS He will be discharged on his home dose of metformin VTE prophylaxis: Wells risk score: 0 Enoxaparin 40 mg subQ daily Consults: none, though he will need to follow up with his neurologist at [facility], may require consultation with Cardiology Patient is admitted under inpatient status with expected length of stay greater than 2 midnights due to severity of presenting symptoms, risk of adverse event, and complexity of treatment plan. FEN: IV NS at 100 ml/hour, Carb controlled diet, CMP and magnesium in the am. Dispo: Probable discharge to home Code Status: Full code as discussed with patient Emilee is his and surrogate/POA COVID-19 COVID-19 status: Negative Result date/Date tested (Pos, Neg/Pending): 05/18/21 Scores Wells' Criteria for PE Clinical signs and symptoms of DVT: No PE is #1 Dx or equally likely: No Heart rate > 100: No Immobilization at least 3 days or surg in previous 4 weeks: No History of PE or DVT: No Hemoptysis: No Malignancy w/Treatment within 6 months or palliative: No Wells' PE Score total: 0 Quality Stroke Contraindication Not Initiating IV-Tpa: Contraindicated Onset of Symptoms Date: 05/18/21 Onset of Symptoms Time: 16:30 Symptom Onset Unknown: Yes Contraindication Antithromb by Day Two: Adverse reaction to drug (Previous bleed per patient) Rehab Services Assessed: Rehabilitation therapy MIPS - Admit I confirm the patient?s Advance Care Plan is present, Code status is documented, Surrogate decision maker is in patient?s record [If Yes, STOP here]: Yes
[2021-05-19] VITALS (35 sets, daily range): BP systolic 143–192; BP diastolic 71–94; PULSE 46–72; RESP 11–24; TEMP 36.2–37.3; O2SAT 92–99; BMI 27.5
--- NOTE | 2021-05-19 | DI.MRI.S_ITS ---
PROCEDURE: MR STROKE Pre- and post-contrast brain MRI, non-contrast brain MR angiogram, pre- and postcontrast neck MR angiogram INDICATIONS: CVA TECHNIQUE: Brain: Noncontrast axial T1 spin echo, axial T2 fast spin echo, sagittal and axial FLAIR, coronal T2 fast spin echo, axial gradient echo, axial diffusion and ADC through the brain. After the administration of contrast, axial 3D VIBE of the cranial vasculature and brain. Brain MRA: Non-contrast 3-D time of flight MR angiogram, with multiple bgcepmn-kjsfhomlj-hmxgufocuj (MIP) reformats performed. Neck MRA: Axial and sagittal TruFISP through the neck. Coronal dynamic MR angiogram during administration of contrast in the arterial and venous phases, with 3-dimenstional snpucts-fsgbzmgwt-cwribnfvue (MIP) reformats constructed from subtraction images. COMPARISON: [facility], CT, CT ANGIO HEAD AND NECK, 05/18/2021, 18:45. FINDINGS: Image quality: Excellent. BRAIN: The ventricular system and cortical sulci demonstrate atrophy, consistent for the patient's stated age. There are areas of increased T2/FLAIR signal intensity within the periventricular and subcortical white matter. There is no acute intra-or extra axial fluid collection. No acute hemorrhage, mass lesion or midline shift. Brainstem is unremarkable. Restricted diffusion with hypointense ADC and increased T2/FLAIR signal are noted in the medial aspect of the right parietal occipital lobe. It is adjacent to a focal area of encephalomalacia most consistent with prior infarction. Globes are symmetrical. Sinuses are aerated. Osseous structures are intact. BRAIN MR ANGIOGRAM: Anterior circulation: Intracranial internal carotid arteries are normal in size and enhancement. The flow within the paired anterior cerebral arteries is normal and symmetric. The flow within the middle cerebral arteries is normal and symmetric. The anterior communicating artery is seen. No stenoses, occlusions, or aneurysms. Posterior circulation: The visualized portions of the vertebral arteries demonstrate normal caliber, and join to form a normal appearing basilar artery. The flow within the posterior cerebral arteries is normal and symmetric. No stenoses, occlusions, or aneurysms. Left vertebral artery dominance is present. NECK MR ANGIOGRAM: Carotids: Great vessels demonstrate a conventional anatomy as they arise from the aortic arch. The origins of the common carotid arteries appear patent. The calibers and courses of both common carotid arteries are normal. The bifurcation regions appear normal bilaterally. The internal carotid arteries demonstrate normal course and caliber. Posterior circulation: The origins of the vertebral arteries appear patent. More superior portions of both vertebral arteries demonstrate normal course and caliber, and join to form a normal appearing basilar artery. Miscellaneous: Subclavian arteries appear patent. Pre-contrast images through the neck show no soft tissue abnormalities. IMPRESSION: 1. Focus of restricted diffusion within the medial right parietal occipital lobe consistent with acute/subacute ischemia. No superimposed hemorrhage. 2. Moderate atrophy and chronic microvascular ischemic changes. Focus of encephalomalacia consistent with old infarction is noted in the right lateral parietal-occipital lobe. 3. No areas of hemodynamically significant stenosis, vascular occlusion or aneurysmal dilation within the anterior or posterior circulation. 4. No areas of hemodynamically significant stenosis, vascular occlusion or aneurysmal dilation within the neck vasculature. Dictated by: Ofe Garcia M.D. on 05/19/2021 at 11:04 Approved by: Ofe Garcia M.D. on 05/19/2021 at 11:12
--- NOTE | 2021-05-19 | DI.ECHO.S_ITS ---
[facility] +---------+ : : [address] : : : : [id number] : : : : Phone: [phone]+ Echocardiogram Report + + :Name: RICH GALEAS Study Date: 05/19/2021 Height: 70 in : :[facility] ReadingLocation: Weight: 192 lb : : Gender: Male BSA: 2.1 m2 : :: 1955 Age: 66 yrs BP: 156/72 mmHg: :Reason For Study: CVA : :Ordering Physician: Adi NASSARformed By: Kinjal Kelly : :Referring: CARLEY NASSAR : + + Interpretation Summary The left ventricle is normal in size and wall thickness. Left ventricular systolic function appears normal without focal wall motion abnormalities. The ejection fraction is estimated to be 60-65%. Diastolic parameters suggest probable normal left ventricular diastolic function and normal filling pressures. The right ventricle is mildly dilated. The right ventricular systolic function is normal. Pulmonary artery pressures cannot be estimated because of the lack of a measurable TR jet velocity but the IVC suggests a CVP of around 3 mmHg. Both atria are normal in size. There is mild aortic regurgitation. There is no other significant valvular heart disease. The aortic root is normal size. No obvious cardiac source for CVA. Procedure: A two-dimensional transthoracic echocardiogram with color flow and Doppler was performed. The study quality was technically adequate. There is no prior echocardiogram noted for this patient. The patient was in sinus bradycardia with heart rates between 52-57 bpm during the exam. Left Ventricle: The left ventricle is normal in size and wall thickness. Left ventricular systolic function appears normal without focal wall motion abnormalities. The ejection fraction is estimated to be 60-65%. Diastolic parameters suggest probable normal left ventricular diastolic function and normal filling pressures. Right Ventricle: The right ventricle is mildly dilated. The right ventricular systolic function is normal. Atria: Both atria are normal in size. There is no Doppler evidence for an interatrial shunt. Mitral Valve: The mitral valve is normal in structure and function. There is trace mitral regurgitation. Aortic Valve: The aortic valve is trileaflet. The aortic valve opens well. There is no aortic valve stenosis. There is mild aortic regurgitation. Tricuspid Valve: The tricuspid valve is normal in structure and function. There is trace tricuspid regurgitation. Pulmonary artery pressures cannot be estimated because of the lack of a measurable TR jet velocity but the IVC suggests a CVP of around 3 mmHg. Pulmonic Valve: The pulmonic valve is not well seen, but is grossly normal. There is trace pulmonic regurgitation. There is no other significant valvular heart disease. Great Vessels: The aortic root is normal size. The dimensions of the ascending aorta are normal. The IVC is of normal diameter and collapses greater than 50% with a sniff. This suggests a low right atrial pressure of 3 mm Hg. Pericardium/ Pleura There is no pericardial effusion. There is no pleural effusion. MMode/2D Measurements & Calculations LVIDd: 4.8 cm LVOT diam: 2.0 cm LVIDs: 3.2 cm Ao root diam: 3.8 cm FS: 32.2 % asc Aorta Diam: 3.0 cm IVSd: 0.90 cm Ao Arch Diam (Prox Trans): 2.9 cm LVPWd: 0.89 cm LV johnston. diameter/BSA (cm/m^2): 2.3 LV sys. diameter/BSA (cm/m^2): 1.6 LA A2 area: 19.0 cm2 RA long axis: 4.4 cm LA A4 area: 14.7 cm2 RA area: 11.7 cm2 LA length (vol): 4.8 cm RA vol: 26.4 ml LA vol: 48.9 ml RA : 12.9 ml/m2 LA vol index: 23.9 ml/m2 IVC diam: 2.0 cm RVD1 (basal): 4.3 cm TAPSE: 2.5 cm Doppler Measurements & Calculations Ao V2 max: 124.1 cm/sec LVOT Max Clyde: 106.3 cm/sec Ao V2 mean: 80.1 cm/sec LV V1 max P.5 mmHg Ao max P.2 mmHg LV V1 VTI: 23.6 cm Ao mean P.0 mmHg DAYA(I,D): 2.8 cm2 Ao V2 VTI: 27.4 cm DAYA(V,D): 2.8 cm2 sev ratio: 0.86 DAYA indexed to BSA (cm^2/m^2): 1.4 MV E max clyde: 82.2 cm/sec PA pr(Accel): 29.3 mmHg MV A max clyde: 71.9 cm/sec MV E/A: 1.1 Med Peak E' Clyde: 6.9 cm/sec E/E' med: 11.8 Lat Peak E' Clyde: 9.3 cm/sec E/E' lat: 8.8 E/e' average: 10.3 MV dec time: 0.18 sec SV(LVOT): 76.5 ml Reading Physician:05:26 PM
[2021-05-19] MEDS: ATORVASTATIN 20 MG TABLET 80 MG PO (00:51)
[2021-05-19] MEDS: LEVOTHYROXINE 25 MCG TABLET PO (06:11)
[2021-05-19 06:34] LABS: Add Manual Diff / Slide Review NO; Basophils Absolute Auto 100 /uL (0-100); Basophils Percent Auto 0.9 % (0-2); Eosinophils Absolute Auto 300 /uL (0-450); Eosinophils Percent Auto 4.1 % (2-4); Hematocrit 40.5 % (41-53); Hemoglobin 13.8 g/dL (13.5-17.5); Lymphocytes Absolute Auto 1500 /uL (1100-4500); Lymphocytes Percent Auto 23.6 % (25-40); Mean Corpuscular HGB Conc 34.1 % (30-36); Mean Corpuscular Hemoglobin 31.1 PG (26-34); Mean Corpuscular Volume 91.3 fL (80-100); Monocytes Absolute Auto 400 /uL (0-900); Monocytes Percent Auto 6.9 % (3-14); Neutrophils Absolute Auto 4000 /uL (1500-7000); Neutrophils Percent Auto 64.5 % (50-75); Platelet Count 178 X10^3/uL (150-400); Red Blood Cell Count 4.44 X10^6/uL (4.5-5.9); Red Cell Distribution Width 13.3 % (11.6-14.8); White Blood Cell Count 6.2 X10^3/uL (4.5-11.0)
[2021-05-19 06:44] LABS: BUN Creatinine Ratio 15.3 (6-22); Blood Urea Nitrogen 13 mg/dL (9-20); Calcium 8.8 mg/dL (8.4-10.2); Carbon Dioxide 30 mmol/L (22-32); Chloride 105 mmol/L (98-107); Estimated Glomerular Filt Rate > 60.0 mL/min (>60); Glucose 122 mg/dL (80-110); HEMOLYSIS 16 (0-50); Magnesium 1.9 mg/dL (1.6-2.3); Potassium 4.7 mmol/L (3.4-5.1); Sodium 139 mmol/L (137-145)
[2021-05-19 07:13] LABS: Thyroid Stimulating Hormone 1.85 uIU/mL (0.47-4.68)
--- NOTE | 2021-05-19 09:23 | P.DS_ITS ---
History of Present Illness History of Present Illness Chief complaint: stroke symptoms Narrative: Per Allie Mary: Maxi Osorio is a 66-year-old male with hypertension, hypothyroidism, diabetes type 2, and a 1 year history of having had a right-sided CVA. Tonight he presents with a vision loss of the left lower side at approximately 4:35 p.m. 05/18/2021. Apparently while he was in the emergency department he did not have any improvement in his vision. He does endorse having had a headache. Denies any dizziness, difficulty speaking or swallowing, nasal congestion, cough, dyspnea, chest pain, nausea or vomiting, dysuria, diarrhea or constipation. 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 Patient had similar symptoms almost exactly a year ago but describes the vision changes significantly worsened that fully occluded his vision on the left side. At that time he received tPA at [facility] and was transferred to [facility]. Patient states he developed a bleed after tPA. Patient states that they observed him but did not do any additional intervention, but did place an impla ntable loop recorder. He was discharged home on Plavix but is currently only taking aspirin [address] of the head and head and neck CT a ordered by the ED did not indicate any acute process. Patient is afebrile, blood pressure 171/86, heart rate 45, respiratory rate 11, oxygen saturation 98% on room air, he weighs 87 kg. WBC is 6.4, RBC 4.47, hemoglobin 13.9, hematocrit 40.5, platelet count 209, his BMP is essentially normal though his glucose was 206, hemoglobin A1c is 6.7, liver enzymes within normal limits, UA is negative for UTI, urine toxicology screen is only positive for marijuana to which the patient admits 2, and COVID- 19 PCR is negative. Discharge Providers Provider Date of admission: 05/18/21 21:23 Discharge Date: 05/19/21 Primary care physician: Pasha Lam MD Consults: 05/18/21 22:04 Consult to Discharge Planning Routine Comment: Consult to Occupational Therapy Evaluate & Treat Comment: Physician Instructions: Evaluate and treat Consult to Physical Therapy Evaluate & Treat Comment: Physician Instructions: Evaluate and Treat Consult to Speech Therapy Evaluate & Treat Comment: Physician Instructions: Evaluate and treat Discharge provider: Sloan Harrington MD Summary Hospital Course Discharge Diagnosis: 1. Acute occipital CVA with vision loss 2. Hypertension 3. Hyperlipidemia 4. Diabetes, not on insulin 5. History of CVA Hospital Course: Mr. Osorio came in with sudden onset vision loss in his b ilateral eyes in the lower left visual field. He was in the window for TPA, but he has had a previous stroke, had TPA, and had a head bleed at that time. Because of this he did not receive TPA. His MRI showed a medical right parietal occipital lobe infarct. CTA showed no stenosis. ECHO showed an EF of 60-65% and mildly dilated RV. He had been on aspirin prior to coming in so he will plan to be discharge on aspirin and plavix and atorvastatin. His vision did not improve at discharge. He will follow up with his PCP and have a neurology referral. Exam Vital Signs (past 8 hours): Oxygen Delivery Method Room Air Narrative Exam Narrative: GEN: no acute distress HEENT: patient has decreased vision in left lower corona bilaterally. HEART: Regular rate and rhythm without murmur, LUNGS:Lungs clear to auscultation, no wheezes, rales, crackles ABD:bowel sounds normal, soft, non-tender, MSCL: Non-tender, no muscle atrophy, muscles strength 5/5 upper and lower extremities, full range of motion, normal gait NEURO:CN 2-12 intact, sensation normal, finger nose finger test normal, heel ji test normal Objective Labs Result Diagrams: 05/19/21 06:15 05/19/21 06:15 [facility] Medical History Acute CVA (cerebrovascular accident) Diabetes type 2, uncontrolled Essential hypertension History of anal fissures Homonymous hemianopsia Hypothyroidism Surgical History S/P repair of hydrocele Family History Father Renal failure Diabetes type 2, uncontrolled Myocardial infarction Heart failure Mother Heart failure Social History household members: spouse Smoking Status: Former smoker Discharge Plan Discharge Plan Patient Disposition: Home Provider Discharge Comment: Mr. Osorio came in with new loss of vision. He was found to have a stroke. He will be started on plavix and aspirin and should take both these medications for 3 weeks. He can then stop aspirin and continue with plavix. But he will be referred to neurologist to continue with follow up.. Discharge orders & Medications Prescriptions: New clopidogrel 75 mg Tablet 75 mg PO DAILY Qty: 30 RF: 0 Continued lisinopril 10 MG tablet 20 mg PO DAILY Qty: 0 RF: 0 levothyroxine 25 MCG tablet 75 mcg PO DAILY Qty: 0 RF: 0 metformin 1,000 mg Tablet 1,000 mg PO BID RF: 0 tamsulosin [Flomax] 0.4 mg Capsule 0.4 mg PO DAILY RF: 0 aspirin 81 mg Tablet 81 mg PO DAILY RF: 0 ibuprofen 300 mg Tablet 400 mg PO PRN PRN (Reason: Pain (Scale Score 1-3)) RF: 0 Changed atorvastatin 40 mg Tablet 80 mg PO DAILY Qty: 30 RF: 0 Medication counseling provided by Pharmacist: Yes Follow up/Referrals: Pasha Lam MD [Primary Care Provider] - Annelise Bagn MD [Non-Staff] - (recent stroke, placed on dual antiplatelet for 21 days) Diet/Activity/Treatments Diet: Low-cholesterol Visit Report/Discharge Packet Instructions: DI for Stroke-Ischemic, Clopidogrel Discharge Data Primary Care Provider: Pasha Lam Attending Provider: Allie Mary Stroke Contraindication Not Initiating IV-Tpa: Contraindicated Onset of Symptoms Date: 05/18/21 Onset of Symptoms Time: 16:30 Symptom Onset Unknown: Yes Contraindication Antithromb by Day Two: Adverse reaction to drug (Previous bleed per patient) Rehab Services Assessed: Rehabilitation therapy MIPS - DC The patient has current or prior documentation of left ventricular ejection fraction (LVEF) less than 40%, or moderate or severely depressed left ventricular systolic function.: No
--- NOTE | 2021-05-19 13:54 | SLP.IPNOTE ---
Orders received. Introduced self to the pt and his . Pt denies difficulty with speech intelligibility, language comprehension/formulation and swallowi difficulties. Pt's confirmed same. This ST observed no overt deficits. No ST indicated at this time. will d/c order
[2021-05-19] MEDS: CLOPIDOGREL 75 MG TABLET PO (13:56)
[2021-05-19] MEDS: lisinopriL 10 MG TABLET PO (13:56)
[2021-05-19] MEDS: ENOXAPARIN 40 MG/0.4 ML SYRINGE SUBCUT (13:56)
[2021-05-19] MEDS: ATORVASTATIN 20 MG TABLET 40 MG PO (13:56)
--- NOTE | 2021-05-19 14:50 | PT.IIE ---
Current Diagnoses Cerebral infarction, unspecified (05/18/21) Medical History (Last Reviewed 05/19/21 @ 00:48 by EMANI Brown) Acute CVA (cerebrovascular accident) Diabetes type 2, uncontrolled Essential hypertension History of anal fissures Homonymous hemianopsia Hypothyroidism Physical Therapy Inpatient Evaluation/Re-Eval M1 PT/OT-IP Prior Functional Status Start: 05/19/21 16:14 Freq: NEEDED Status: Active Protocol: Document 05/19/21 14:50 AB (Rec[facility]21 16[facility] Review Prior Functional Status Medical History Reviewed Yes Communication able to make needs known Mobility and Gait pt stated that he is independent with all mobilities and ambulation without AD Social History Household Members spouse Living Arrangements House Number of Floors (Floors) 3 or More Floors Number of Stairs To Enter/Railing? 2 steps to enter without rails 12 steps B rails to get to bedroom level Home Environment Standard Height Toilet,Walk in Shower,Built-In Shower Seat Home Equipment Hand Held Shower Additional Social History Comment has walking sticks M2 PT-IP Current Condition Start: 05/19/21 16:14 Freq: NEEDED Status: Active Protocol: Document 05/19/21 14:50 AB (Rec: 05/19/21 16:30 [facility] Physical Therapy Current Condition Current Condition Evaluation Date 05/19/21 Treatment Diagnosis CVA; difficulty in walking Onset Date 05/18/21 M3 PT-IP Subjective Start: 05/19/21 16:14 Freq: NEEDED Status: Active Protocol: Document 05/19/21 14:50 AB (Rec: 05/19/21 16:30 [facility] Subjective Physical Therapy Visit Type Type Initial Evaluation Visit Start Time 14:50 Visit Stop Time 15:10 Total Visit Minutes 20 Number of TRUCK SPOTTER Visits 0 Physical Therapy Visit Comments Patient Comments agreeable to do PT Therapy Pain Assessment Pain Present Pain Present Denied Pain M4 PT-IP Mobility and Gait Start: 05/19/21 16:14 Freq: NEEDED Status: Active Protocol: Document 05/19/21 14:50 AB (Rec: 05/19/21 16:30 AB [id number]) PT-Bed Mobility Assessment Supine to Sit Supine to Sit Independent Sit to Supine Sit to Supine Independent Scooting Scooting to Edge of Bed Independent Scooting Up and Down in Bed Independent PT-Transfer Assessment Sit to and From Stand Sit to and from Stand Independent Equipment Transfer Assistive Device None,Bed Rail,Gait Belt Transfer Ability Level of Assist Independent Comments Mobility Comments pt c/o L sided visual loss but stated that he has that problem from last CVA in 2019. BP: 138/85 completed supine to sit independent. pt without c/o dizziness. completed sit to stand independent and ambulated in room without AD SBA. occasional unsteady gait but without LOB. increase lateral trunk lean to the L requiring increase time to recovery back to center. Tinetti balance assessment: which is negligible fall risk pt completed up/down step stool without rail SBA. pt ambulated back to the bed. completed sit to supine independent. positioned in bed call light and table placed within reach. pt in bed for ECHO procedure. Gait Assessment Gait Gait Assistance Required: Standby Assistance Distance (Feet) 40 Able to Maintain Weight Bearing Status Yes During Gait Assistive Devices Assistive Device None,Gait Belt Orthotic/Prosthetic Devices or Brace: No Factors Limiting Gait Function Factors Limiting Gait Function Poor Balance Stair Climbing Assessment Evaluation Level of Assist On Stairs Standby Assistance Devices Stair Climbing Assistive Devices None Technique/Endurance Stair Climbing Direction Ascend and Descend Stair Climbing Technique Step to Step Number of Steps Climbed 1 Query Text: Stair Climbing Set # Repetitions (reps) 3 PT-Balance Assessment Sitting Balance and Reactions Static Sitting Balance Ability Normal Dynamic Sitting Balance Ability Normal Standing Balance and Reactions Static Standing Balance Ability Good Dynamic Standing Balance Ability Good Device Used without AD M5 PT-IP Objective Assessments Start: 05/19/21 16:14 Freq: NEEDED Status: Active Protocol: Document 05/19/21 14:50 AB (Rec: 05/19/21 16:30 AB [id number]) Orientation Orientation/Cognition Level of Alertness Alert Orientation Name,Place,Situation Language Function Ability No Deficits Noted Safety Awareness Understands Safety Issues Memory Description No Deficits Noted Gross Range of Motion Lower Extremity ROM Assessment Within Functional Limits Strength Lower Extremity Strength Assessment Within Functional Limits Coordination Assessment Gross Coordination Gross Coordination WNL Sensation Assessment Sensation Gross Sensation WNL Muscle Tone Muscle Tone WNL Yes M6 PT-IP Treatment Start: 05/19/21 16:14 Freq: NEEDED Status: Active Protocol: Document 05/19/21 14:50 AB (Rec: 05/19/21 16:30 AB [id number]) Physical Therapy Treatment Education Education Provided Safety M7 PT-IP Assessment and Plan Start: 05/19/21 16:14 Freq: NEEDED Status: Active Protocol: Document 05/19/21 14:50 AB (Rec: 05/19/21 16:30 AB [id number]) PT Summary Assessment and Plan Potential Rehabilitation Potential Good Status of Condition at Evaluation Stable Summary Assessment Summary PT eval completed and no further PT intervention indicated at this time. pt plans to go home with spouse to assist as needed. pt with occasional unsteadiness with ambulation but without LOB. Tinetti balance assessment completed: and has low/ negligible fall risk. Pt may go home when stable. Frequency of Treatment Frequency Of Treatment Discharge Recommendations To Nursing Amount of Assist Needed Standby Assistance Discharge Recommendations PT Discharge Recommendations Home with Assistance Transportation Needs at Discharge Private Vehicle
--- NOTE | 2021-05-19 16:00 | OT.IP.EVAL ---
Current Diagnoses Cerebral infarction, unspecified (05/18/21) Past Medical History (Last Reviewed 05/19/21 @ 00:48 by EMANI Brown) Acute CVA (cerebrovascular accident) Diabetes type 2, uncontrolled Essential hypertension History of anal fissures Homonymous hemianopsia Hypothyroidism S/P repair of hydrocele Surgical History (Last Reviewed 05/19/21 @ 00:48 by EMANI Brown) S/P repair of hydrocele Occupational Therapy Inpatient Evaluation/Re-Eval M1 PT/OT-IP Prior Functional Status Start: 05/19/21 16:14 Freq: NEEDED Status: Active Protocol: Document 05/19/21 16:15 [facility] (Rec: 05/19/21 17:36 [facility] [id number]) Medical Review Prior Functional Status Medical History Reviewed Yes Communication able to make needs known Mobility and Gait pt stated that he is independent with all mobilities and ambulation without AD Activities of Daily Living and IADL's Pt completely independent with all needs and also very actively working on his boat. Social History Household Members spouse Living Arrangements House Number of Floors (Floors) 3 or More Floors Number of Stairs To Enter/Railing? 2 steps to enter without rails 12 steps B rails to get to bedroom level Home Environment Standard Height Toilet,Walk in Shower,Built-In Shower Seat Home Equipment Hand Held Shower Additional Social History Comment has walking sticks M2 OT-IP Current Condition Start: 05/19/21 17:09 Freq: Status: Active Protocol: Document 05/19/21 16:15 [facility] (Rec: 05/19/21 17:36 [facility] [id number]) Occupational Therapy Current Condition Current Condition Evaluation Date 05/19/21 Treatment Diagnosis CVA Diagnosis Onset Date 05/18/21 M3 OT- IP Subjective and Pain Start: 05/19/21 17:09 Freq: Status: Active Protocol: Document 05/19/21 16:15 [facility] (Rec: 05/19/21 17:36 [facility] [id number]) OT- Subjective Occupational Therapy Visit Type Type Initial Evaluation Visit Start Time 16:15 Visit Stop Time 17:00 Total Visit Minutes 45 Occupational Therapy Visit Comments Patient Comments Pt agreed to do OT eval and pt 's in the room for OT eval. Patient/Caregiver Goals TO go home. OT Pain Assessment Pain When Pain Assessed At Rest Pain Present Pain Present Denied Pain M4 OT- IP ADL's Start: 05/19/21 17:09 Freq: Status: Active Protocol: Document 05/19/21 16:15 [facility] (Rec: 05/19/21 17:36 [facility] [id number]) OT [id number] Comments OT Self-Feeding Comments Pt states has no issues. OT ADL-Grooming Comments OT Grooming Comments Not performed. OT ADL-Oral Care Comments Oral Care Comments Not performed. OT ADL-Dressing General Eval Lower Body Dressing Ability Independent,Contact Guard Assistance Comments OT Dressing Comments Pt able to cameron/doff socks while seated independently. However prior pt states cameron/ doff his socks standing and had a loss of balance when trying to cross his right leg over his left in order to get his right sock on. Pt aware for now best to sit down. OT ADL-Toileting Comments OT Toileting Comments Pt states has been using the toilet on his own. Educated to make sure to have good lighting and look to the left to ensure not bumping into objects especially at night. OT ADL-Bathing Comments OT Bathing Comments Pt states stands while shower and suggested to have his there initially or use of built in seat or obtain shower chair if needed. M5 OT- IP IADL's Start: 05/19/21 17:09 Freq: Status: Active Protocol: Document 05/19/21 16:15 [facility] (Rec: 05/19/21 17:36 [facility] [id number]) OT-Instrumental Activities of Daily Living Home Safety Awareness Home Safety Comments Due to pt's decreased vision on his left side would be best for his to provide supervision initially for ADL and IADl needs. Medication Management Medication Management Comments Due to pt's decreased vision on his left side would be best for his to provide supervision initially for ADL and IADl needs. Money Management Money Management Comments Due to pt's decreased vision on his left side would be best for his to provide supervision initially for ADL and IADl needs. Meal Preparation Meal Preparation Comments Due to pt's decreased vision on his left side would be best for his to provide supervision initially for ADL and IADl needs. Vegetable Inspector Vegetable Inspector Comments Due to pt's decreased vision on his left side would be best for his to provide supervision initially for ADL and IADl needs. Driving Driving Comments Would be best to follow up with neuro program research specialist regarding driving needs. M6 OT- IP Functional Cognition Start: 05/19/21 17:09 Freq: Status: Active Protocol: Document 05/19/21 16:15 [facility] (Rec: 05/19/21 17:36 [facility] [id number]) Cognitive Factors Limiting Selfcare Function Cognitive Ability Level of Alertness Alert Patient Orientation Name,Age,Birthday,Month,Date, Year,Day of Week,Place, Situation Attention Span Ability Capable of Focused Attention, Capable of Sustained Attention Ability to Follow Commands Able to Follow Multi-Step Commands Safety Awareness Underestimates Need for Assistance Problem Solving Ability No deficits Noted Executive Function Ability Unable to Remember Details Cognitive Comments Cognitive Assessment Comments Pt scored 94 seconds of [place] making Part B which implies MIN/MOD impairment for visual attention, task switching, speed of processing, executive problem solving and mental flexibilty. Pt scored 20th percentile for his age. Pt agrees to no drive at this time. OT- Vision and Hearing OT- Hearing Assessment OT- Hearing Assessment WFL OT- Vision Assessment Visual Acuity Glasses For Reading Occular Pursuits WFL Visual [place] Impaired Vision Assessment Comments Left homonymous hemianopsia M7 OT- IP Mobility and Balance Start: 05/19/21 17:09 Freq: Status: Active Protocol: Document 05/19/21 16:15 [facility] (Rec: 05/19/21 17:36 [facility] [id number]) OT- Bed Mobility Assessment Supine to Sit Supine to Sit Assist Independent Sit to Supine Sit to Supine Assist Independent OT-Transfer Assessment Sit to and From Stand Sit to and from Stand Independent Transfers Transfer Ability Independent Technique Transfer Destination Bed Comments Mobility Comments Pt able to move independently in the room with out loss of balance. OT- Balance Assessment Sitting Balance and Reactions Static Sitting Balance Ability Normal Dynamic Sitting Balance Ability Normal Standing Balance and Reactions Static Standing Balance Ability Good Dynamic Standing Balance Ability Fair M8 OT- IP Objective Assessments Start: 05/19/21 17:09 Freq: Status: Active Protocol: Document 05/19/21 16:15 [facility] (Rec: 05/19/21 17:36 [facility] [id number]) OT Gross Range of Motion Upper Extremity Range of Motion Assessment Within Functional Limits OT Strength Upper Extremity Strength Assessment Within Functional Limits OT- Coordination Assessment Upper Extremity Finger to Nose Test Within Functional Limits Comments Coordination Comments Right hand 9 hole peg test 90th percentile and left hand approximately just above 80 th percentile. OT-Muscle Tone Assessment Muscle Tone WNL Yes OT Sensation Assessment Comments Summary Comments Intact for sensation, slight increase in time for left UE kinesthesia. M9 OT- IP Assessment and Plan Start: 05/19/21 17:09 Freq: Status: Active Protocol: Document 05/19/21 16:15 [facility] (Rec: 05/19/21 17:36 [facility] [id number]) OT Summary Assessment and Plan Potential Rehabilitation Potential Good Analytic Complexity at Evaluation Moderate Summary OT Impairments Balance,Functional Mobility, Bathing Progress Towards Goals Progressing Toward Goals Assessment Summary Pt MOD complexity and main barriers are decreased left homonymous hemianopsia , decreased dynamic balance and high level of executive functioning. Pt looking to go home with when medically stable and wanting to wait a few days to see if his eyes will clear up before trying to find a neuro program research specialist. Goals Dressing Goal Independent Toileting Goal Independent Bathing Goal Independent OT-Other Goals Pt to be independent for vision strategies to assist with left visual deficits. Days to Meet Goals 1 Frequency of Treatment Frequency Of Treatment Once a Day Treatment Plan OT Treatment Plan ADL Training,Functional Cognition Training,Functional Mobility,Vision Retraining, Patient/Family Education, Discharge Planning Other Treatment Recommendations and Next shower if still here, vision Treatment Focus retraining Discharge Recommendations OT Discharge Recommendations Home with Assistance Transportation Needs at Discharge Private Vehicle
[2021-05-19] MEDS: INSULIN LISPRO 100 UNIT/ML 3ML VIAL SUBCUT (17:04)
--- NOTE | 2021-05-19 18:16 | PC.NURSE ---
Patient discharge in stable condition at 6:20pm via private vehicle, spouse present. He was taken down by wheelchair by EMAIL SPECIALIST. Summary of discharge orders review with patient and hard copy of scripts sent with patient.
== END 2021-05-19 18:20 | disposition home or self-care (01) ==
LOC: ED 20:40 → AC 05-19 07:56
PROVIDERS: Admitting Provider Nurse Practitioner Family; Emergency Provider Emergency Medicine; PCP Internal Medicine; Referring Provider Emergency Medicine; Visit Provider Nurse Practitioner Family
DX: I63.9 Cerebral infarction, unspecified (principal); H54.7 Unspecified visual loss; E11.9 Type 2 diabetes mellitus without complications; E03.9 Hypothyroidism, unspecified; R29.702 NIHSS score 2; Z20.822 Contact with and (suspected) exposure to COVID-19; Z79.84 Long term (current) use of oral hypoglycemic drugs; Z87.891 Personal history of nicotine dependence; Z79.82 Long term (current) use of aspirin; N40.0 Benign prostatic hyperplasia without lower urinary tract symptoms
CPT/HCPCS: 36415; 70450; 70496; 70498; 70548; 70553; 80048; 80053; 80305; 81001; 82550; 82553; 82962; 83036; 83735; 84443; 84484; 85025; 87635; 93005; 93306; 96360; 96361; 96372; 97161; 97166; 97530; 99285; 99291; C9803; G0378; J1650; J1815; Q9967

== ENCOUNTER → 2022-05-25 10:35 | Outpatient (CLI) | payer MEDICARE, OTHER, SELFPAY ==
[2021-05-19 02:27] VITALS: BMI 27.5
[2022-05-25 12:23] LABS: Hematocrit 43.4 % (41-53); Hemoglobin 15.1 g/dL (13.5-17.5); Mean Corpuscular HGB Conc 34.9 % (30-36); Mean Corpuscular Hemoglobin 31.3 PG (26-34); Mean Corpuscular Volume 89.7 fL (80-100); Platelet Count 202 X10^3/uL (150-400); Red Blood Cell Count 4.83 X10^6/uL (4.5-5.9); Red Cell Distribution Width 13.3 % (11.6-14.8); White Blood Cell Count 5.3 X10^3/uL (4.5-11.0)
[2022-05-25 13:06] LABS: HEMOLYSIS < 15 (0-50)
[2022-05-25 13:07] LABS: TSH w/ Reflex to FT4 1.12 uIU/mL (0.47-4.68)
[2022-05-25 13:11] LABS: Alanine Aminotransferase 21 IU/L (<50); Albumin 4.1 g/dL (3.5-5.0); Albumin Globulin Ratio 1.9 (1.0-2.8); Alkaline Phosphatase 72 U/L (38-126); Aspartate Aminotransferase 27 IU/L (17-59); BUN Creatinine Ratio 18.6 (6-22); Bilirubin Total 0.5 mg/dL (0.2-1.3); Blood Urea Nitrogen 16 mg/dL (9-20); Calcium 8.9 mg/dL (8.4-10.2); Carbon Dioxide 28 mmol/L (22-32); Chloride 103 mmol/L (98-107); Cholesterol 125 mg/dL (140-199); Estimated Glomerular Filt Rate > 60 mL/min (>60); Globulin 2.2 g/dL (1.7-4.1); Glucose 147 mg/dL (80-110); HDL Cholesterol 40 mg/dL (40-60); LDL Cholesterol Calculated 52 mg/dL (<100); Potassium 4.2 mmol/L (3.4-5.1); Sodium 138 mmol/L (137-145); Total Protein 6.3 g/dL (6.3-8.2); Triglycerides 164 mg/dL (35-150)
[2022-05-25 13:36] LABS: Creatinine Urine Random 168.6 mg/dL
[2022-05-25 13:41] LABS: Microalbumi Creatinin Ratio Ur 6.5 ug/mg CR (<30); Microalbumin Urine Random 1.1 mg/dL (0-1.6)
[2022-05-26] LABS: Prostate Specific Antigen 1.12 ng/mL (0.10-4.00)
[2022-05-26 02:57] LABS: Hemoglobin A1C% w Est Avg Glu 6.5 % (4.0-6.0)
== END ==
PROVIDERS: PCP Internal Medicine; Referring Provider Internal Medicine; Visit Provider Internal Medicine
DX: N13.8 Other obstructive and reflux uropathy (principal); E11.9 Type 2 diabetes mellitus without complications; C61 Malignant neoplasm of prostate; N40.1 Benign prostatic hyperplasia with lower urinary tract symptoms; E03.9 Hypothyroidism, unspecified; E11.59 Type 2 diabetes mellitus with other circulatory complications; I25.10 Atherosclerotic heart disease of native coronary artery without angina pectoris; I67.9 Cerebrovascular disease, unspecified
CPT/HCPCS: 36415; 80053; 80061; 82043; 82570; 83036; 84153; 84443; 85027

== ENCOUNTER → 2022-08-15 15:33 | Outpatient (CLI) | payer MEDICARE, OTHER, SELFPAY ==
[2021-05-19 02:27] VITALS: BMI 27.5
[2022-08-15 15:56] LABS: Hematocrit 41.4 % (41-53); Hemoglobin 14.4 g/dL (13.5-17.5); Mean Corpuscular HGB Conc 34.9 % (30-36); Mean Corpuscular Hemoglobin 30.8 PG (26-34); Mean Corpuscular Volume 88.3 fL (80-100); Platelet Count 236 X10^3/uL (150-400); Red Blood Cell Count 4.69 X10^6/uL (4.5-5.9); Red Cell Distribution Width 13.3 % (11.6-14.8); White Blood Cell Count 6.6 X10^3/uL (4.5-11.0)
[2022-08-15 16:01] LABS: Prothrombin Time 11.8 SECONDS (10.1-12.7)
[2022-08-15 16:04] LABS: PTT Partial Thromboplastin Tim 27 SECONDS (26-36)
[2022-08-15 16:56] LABS: Alanine Aminotransferase 23 IU/L (<50); Albumin 3.9 g/dL (3.5-5.0); Albumin Globulin Ratio 1.6 (1.0-2.8); Alkaline Phosphatase 76 U/L (38-126); Aspartate Aminotransferase 24 IU/L (17-59); BUN Creatinine Ratio 15.1 (6-22); Bilirubin Total 0.4 mg/dL (0.2-1.3); Blood Urea Nitrogen 14 mg/dL (9-20); Calcium 8.6 mg/dL (8.4-10.2); Carbon Dioxide 28 mmol/L (22-32); Chloride 101 mmol/L (98-107); Estimated Glomerular Filt Rate > 60 mL/min (>60); Globulin 2.4 g/dL (1.7-4.1); Glucose 155 mg/dL (80-110); HEMOLYSIS < 15 (0-50); Potassium 3.9 mmol/L (3.4-5.1); Sodium 137 mmol/L (137-145); Total Protein 6.3 g/dL (6.3-8.2)
== END ==
PROVIDERS: PCP Internal Medicine; Referring Provider Internal Medicine; Visit Provider Internal Medicine
DX: Z01.818 Encounter for other preprocedural examination (principal); I25.118 Atherosclerotic heart disease of native coronary artery with other forms of angina pectoris; I67.9 Cerebrovascular disease, unspecified
CPT/HCPCS: 36415; 80053; 85027; 85610; 85730

== ENCOUNTER → 2022-08-22 14:11 | Outpatient (CLI) | payer MEDICARE, OTHER, SELFPAY ==
[2021-05-19 02:27] VITALS: BMI 27.5
[2022-08-22 16:05] LABS: COVID19 -Nasal RAPID Negative (Negative)
== END ==
PROVIDERS: PCP Internal Medicine; Visit Provider Urology
DX: N40.1 Benign prostatic hyperplasia with lower urinary tract symptoms (principal); N13.8 Other obstructive and reflux uropathy; R33.9 Retention of urine, unspecified; Z20.822 Contact with and (suspected) exposure to COVID-19; Z87.891 Personal history of nicotine dependence
CPT/HCPCS: 87635; 99214

== ENCOUNTER 2022-08-23 10:50 | Day surgery (SDC) | payer MEDICARE, OTHER, SELFPAY ==
[2021-05-19 02:27] VITALS: BMI 27.5
[2022-08-19 12:56] VITALS: BMI 27.6
[2022-08-23] VITALS (9 sets, daily range): BP systolic 125–179; BP diastolic 64–104; PULSE 56–83; RESP 8–20; TEMP 35.8–36.4; O2SAT 94–99; BMI 27.2
[2022-08-23] MEDS: LACTATED RINGERS 1,000 ML 25 ML IV ×3 (11:22→15:02)
--- NOTE | 2022-08-23 12:28 | PM.PREOP ---
Pre-operative Note COVID-19 COVID-19 status: Negative Result date/Date tested (Pos, Neg/Pending): 08/22/22 Criteria for continued procedure: Delay expected to result in less-positive ultimate med/surg outcome and Non-surgical alternatives not available or appropriate per current SOC Interval Note History & Physical reviewed/Exam performed by Physician: Yes Changes to H&P: No
[2022-08-23] MEDS: CEFAZOLIN 2 GM/100 ML PREMIX 100 ML IV (13:15)
--- NOTE | 2022-08-23 13:33 | SUR.OPER ---
Lithotomy on padded OR bed, head on pillow, arms secured on padded arm boards at <90 degrees abduction. Legs secured in padded yellow fins stirrups.
--- NOTE | 2022-08-23 14:40 | PM.OP.1 ---
Procedure & Clinicians Procedure: Laser photo vaporization and laser enucleation of prostate Same procedure as scheduled: Yes Indications: This is a 67-year-old male who presented with profound outlet obstructive symptoms and incomplete emptying of the bladder. 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 He presents for the above procedure to relieve his outlet obstruction and restore better urinary flow. Surgeon: Gilberto Osorio Click Yes if Unassisted: Yes Anesthesia Type: General Operative Notes Findings: Urethral meatus and urethra normal to the sphincter which is well coapted. The prostate exhibits a large median lobe filling the bladder outlet and of bilobar moderate obstruction. At the end of the procedure the prostatic fossa was widely patent and with the bladder full and the scope removed vigorous stream was noted. Total laser time 23 minutes 53 seconds total laser energy 192,295 joules. Ureteral orifices in normal position with clear efflux at the end of the procedure they were in normal position and again had clear efflux. Severe trabeculation cellules were noted no other abnormalities were noted in the bladder. A 22 [place] 5 cc Marks catheter was left through the prostate with 15 cc of sterile water in the balloon. Closure Type: not applicable Specimen(s): none sent Applied: catheter (Twenty-two [place] African [address] Marks catheter 15 cc in the balloon) Estimated Blood Loss (mL): 0 Blood products transfused: none Procedure in detail: Procedure in detail: After informed consent was obtained, the patient was identified and brought to the operating room. He was placed in a supine position on the table where anesthesia was induced and maintained. After ensuring an adequate level of anesthesia the patient was transitioned to the lithotomy position where he was prepped, draped, prepared for Transurethral procedure. After time-out, ensuring an adequate level of anesthesia the laser resectoscope was inserted via direct vision through the urethra prostate and bladder were cystoscopy is performed. Laser fiber was inserted and the procedure begun. The level of the verumontanum was marked on the lateral lobes and this was the distal limit of resection. Then lateral to the median lobe right and left a flow channel was created with the laser. The median lobe was then undermined from the verumontanum toward the bladder neck. With this accomplished the median lobe was then enucleated and vaporized sequentially till it was completely ablated. Attention was then turned to the lateral lobes which were vaporized from the bladder neck to the level of the verumontanum right and left. Till the prostatic fossa was widely patent and the above laser time and energy had been deployed. With this intact the bladder was irrigated cystoscopy is performed ureteral orifices were unscathed. The bladder was left full and the laser scope was removed and a vigorous stream was noted. The 22 [place] catheter was then passed through the urethra and into the bladder with the balloon was filled with 15 cc of sterile water. The patient was then awakened taken to the postanesthesia care unit having tolerated the procedure well. There were no complications Complications: none Post-operative Condition: stable Disposition: PACU Plan for aftercare: Patient is to be discharged home with his Marks catheter he will follow up my office in the morning for catheter removal if findings are appropriate.
[2022-08-23] MEDS: PHENAZOPYRIDINE 100 MG TABLET 200 MG PO (15:01)
[2022-08-23] MEDS: OXYCODONE IR 5 MG TABLET PO ×2 (15:06→15:50)
[2022-08-23] MEDS: OXYBUTYNIN 5 MG TABLET PO (15:18)
== END 2022-08-23 14:00 | disposition home or self-care (01) ==
PROVIDERS: PCP Internal Medicine; Referring Provider Urology; Visit Provider Urology
PROC: (CPT 52648; principal; 2022-08-23 12:30)
DX: N40.1 Benign prostatic hyperplasia with lower urinary tract symptoms (principal); N13.8 Other obstructive and reflux uropathy; I10 Essential (primary) hypertension; K21.9 Gastro-esophageal reflux disease without esophagitis; E03.9 Hypothyroidism, unspecified; E11.9 Type 2 diabetes mellitus without complications; Z79.84 Long term (current) use of oral hypoglycemic drugs
CPT/HCPCS: 52649; 82962; J0690; J1170; J2704; J3010

== ENCOUNTER → 2022-09-09 08:58 | Outpatient (CLI) | payer MEDICARE, OTHER, SELFPAY ==
[2021-05-19 02:27] VITALS: BMI 27.5
== END ==
PROVIDERS: PCP Internal Medicine; Visit Provider Urology
DX: N40.1 Benign prostatic hyperplasia with lower urinary tract symptoms (principal); N13.8 Other obstructive and reflux uropathy
CPT/HCPCS: 51798; 81002; 87086

== ENCOUNTER → 2022-10-12 11:14 | Outpatient (CLI) | payer MEDICARE, OTHER, SELFPAY ==
[2022-09-09 09:34] VITALS: BMI 27.5
== END ==
PROVIDERS: PCP Internal Medicine; Visit Provider Urology
DX: N40.1 Benign prostatic hyperplasia with lower urinary tract symptoms (principal); N13.8 Other obstructive and reflux uropathy; Z98.890 Other specified postprocedural states
CPT/HCPCS: 51798; 81002; 87086

== ENCOUNTER → 2022-10-14 09:12 | Outpatient (CLI) | payer MEDICARE, OTHER, SELFPAY ==
[2022-09-09 09:34] VITALS: BMI 27.5
[2022-10-14 10:50] LABS: Hemoglobin A1C% w Est Avg Glu 8.1 % (4.0-6.0)
== END ==
PROVIDERS: PCP Internal Medicine; Referring Provider Internal Medicine; Visit Provider Internal Medicine
DX: E11.59 Type 2 diabetes mellitus with other circulatory complications (principal)
CPT/HCPCS: 36415; 83036

== ENCOUNTER → 2023-04-17 14:34 | Outpatient (CLI) | payer MEDICARE, OTHER, SELFPAY ==
[2023-04-17 14:32] VITALS: BMI 27.5
[2023-04-17 15:17] LABS: Add Manual Diff / Slide Review NO; Basophils Absolute Auto 0 /uL (0-100); Basophils Percent Auto 0.6 % (0-2); Eosinophils Absolute Auto 100 /uL (0-450); Eosinophils Percent Auto 1.9 % (2-4); Hematocrit 41.8 % (41-53); Hemoglobin 14.7 g/dL (13.5-17.5); Lymphocytes Absolute Auto 1500 /uL (1100-4500); Lymphocytes Percent Auto 25.3 % (25-40); Mean Corpuscular HGB Conc 35.1 % (30-36); Mean Corpuscular Hemoglobin 31.2 PG (26-34); Mean Corpuscular Volume 88.7 fL (80-100); Monocytes Absolute Auto 400 /uL (0-900); Monocytes Percent Auto 7.8 % (3-14); Neutrophils Absolute Auto 3700 /uL (1500-7000); Neutrophils Percent Auto 64.4 % (50-75); Platelet Count 210 X10^3/uL (150-400); Red Blood Cell Count 4.71 X10^6/uL (4.5-5.9); Red Cell Distribution Width 13.3 % (11.6-14.8); White Blood Cell Count 5.8 X10^3/uL (4.5-11.0)
[2023-04-17 15:31] LABS: Alanine Aminotransferase 25 IU/L (<50); Albumin Globulin Ratio 1.8 (1.0-2.8); Alkaline Phosphatase 80 U/L (38-126); Aspartate Aminotransferase 22 IU/L (17-59); BUN Creatinine Ratio 18.6 (6-22); Bilirubin Total 0.4 mg/dL (0.2-1.3); Blood Urea Nitrogen 18 mg/dL (9-20); Calcium 8.7 mg/dL (8.4-10.2); Carbon Dioxide 30 mmol/L (22-32); Chloride 100 mmol/L (98-107); Cholesterol 129 mg/dL (140-199); Estimated Glomerular Filt Rate > 60 mL/min (>60); Globulin 2.2 g/dL (1.7-4.1); Glucose 216 mg/dL (80-110); HDL Cholesterol 41 mg/dL (40-60); HEMOLYSIS < 15 (0-50); LDL Cholesterol Calculated 53 mg/dL (<100); Potassium 4.5 mmol/L (3.4-5.1); Sodium 136 mmol/L (137-145); Total Protein 6.2 g/dL (6.3-8.2); Triglycerides 173 mg/dL (35-150)
[2023-04-17 16:02] LABS: Prostate Specific Antigen Scrn 0.768 ng/mL (0.1-4.0); Thyroid Stimulating Hormone 1.74 uIU/mL (0.47-4.68)
[2023-04-17 16:40] LABS: Creatinine Urine Random 154.4 mg/dL
[2023-04-17 16:44] LABS: Microalbumi Creatinin Ratio Ur 4.5 ug/mg CR (<30); Microalbumin Urine Random 0.7 mg/dL (0-1.6)
[2023-04-18 07:43] LABS: x Labcorp Estim. Avg Glu (eAG) 169 mg/dL (.); x Labcorp Hemoglobin A1c 7.5 % (4.8-5.6)
== END ==
PROVIDERS: PCP Internal Medicine; Referring Provider Internal Medicine; Visit Provider Internal Medicine
DX: E03.9 Hypothyroidism, unspecified (principal); Z12.5 Encounter for screening for malignant neoplasm of prostate; E66.3 Overweight; E78.2 Mixed hyperlipidemia; I10 Essential (primary) hypertension; I25.118 Atherosclerotic heart disease of native coronary artery with other forms of angina pectoris; E11.59 Type 2 diabetes mellitus with other circulatory complications
CPT/HCPCS: 36415; 80053; 80061; 82043; 82570; 83036; 84443; 85025; G0103

== ENCOUNTER → 2023-10-20 11:31 | Outpatient (CLI) | payer MEDICARE, OTHER, SELFPAY ==
[2023-04-17 14:32] VITALS: BMI 27.5
[2023-10-20 13:36] LABS: Hemoglobin A1C% w Est Avg Glu 7.6 % (4.0-6.0)
[2023-10-20 13:56] LABS: BUN Creatinine Ratio 18.4 (6-22); Blood Urea Nitrogen 16 mg/dL (9-20); Calcium 9.5 mg/dL (8.4-10.2); Carbon Dioxide 29 mmol/L (22-32); Chloride 100 mmol/L (98-107); Estimated Glomerular Filt Rate > 60 mL/min (>60); Glucose 111 mg/dL (80-110); HEMOLYSIS 26 (0-50); Potassium 4.7 mmol/L (3.4-5.1); Sodium 136 mmol/L (137-145)
== END ==
PROVIDERS: PCP Internal Medicine; Referring Provider Internal Medicine; Visit Provider Internal Medicine
DX: E11.59 Type 2 diabetes mellitus with other circulatory complications (principal)
CPT/HCPCS: 36415; 80048; 83036

== ENCOUNTER → 2023-10-24 11:23 | Outpatient (CLI) | payer MEDICARE, OTHER, SELFPAY ==
[2023-04-17 14:32] VITALS: BMI 27.5
--- NOTE | 2023-10-24 11:26 | DI.CT.S_ITS ---
PROCEDURE: CT LUNG LOW DOSE SCREENING INDICATIONS: history of tobacco use TECHNIQUE: Noncontrast 2.0-2.5 mm thick sections acquired from the pulmonary apices to the posterior costophrenic angles. 7 mm thick axial MIP, and 5 mm coronal and sagittal reformats were then acquired. For radiation dose reduction, the following was used: automated exposure control, adjustment of mA and/or kV according to patient size. COMPARISON: [facility], CT, CT LOW DOSE LUNG CA SCREENING, 01/01/2021, 14:02. FINDINGS: Image quality: Diagnostic, given the low radiation dose technique. Lungs and pleura: Compared to CT chest dated January 01, 2021, no new or enlarging solid pulmonary nodule or consolidation. Stable right fissure solid pulmonary nodule versus lymph node measuring 3 mm (). A few scattered calcified granulomas compatible with prior granulomatous infection. Patent central airways. No pneumothorax. Mediastinum: Heart size is normal. No pericardial effusion. No mediastinal adenopathy by size criteria. Thoracic aorta and central pulmonary arteries are normal in size. Mild calcification of the thoracic aorta. Moderate three-vessel coronary calcification. Esophagus is normal in caliber. No hiatal hernia. Bones and chest wall: No suspicious bony lesions. No vertebral body compression fractures. No axillary or supraclavicular adenopathy by size criteria. No thyroid nodules which require sonographic follow up, per consensus guidelines. Stable sclerotic appearance of the left posterolateral 9th rib with no cortical breakthrough or soft tissue mass, likely benign. Lead left pacer in the left chest wall. Upper Abdomen: Visualized upper abdomen solid organs and bowel loops demonstrate no acute findings. Mild calcification of the splenic artery. IMPRESSION: 1. Compared to CT chest dated January 01, 2021, no new or enlarging solid pulmonary nodules. Stable right perifissural solid pulmonary nodule versus lymph node measuring 3 mm. LUNG-RADS 2; continued annual screening, if eligible. 2. Moderate three-vessel coronary calcification. Dictated by: Sanket Sweet M.D. on 10/24/2023 at 20:03 Approved by: Sanket Sweet M.D. on 10/24/2023 at 20:13
[2023-10-25 12:51] LABS: Fecal Immunochemical Test Positive (Negative)
== END ==
PROVIDERS: PCP Internal Medicine; Referring Provider Internal Medicine; Visit Provider Internal Medicine
DX: Z87.891 Personal history of nicotine dependence (principal); Z12.11 Encounter for screening for malignant neoplasm of colon; E66.3 Overweight; I25.10 Atherosclerotic heart disease of native coronary artery without angina pectoris
CPT/HCPCS: 71271; 82274

== ENCOUNTER 2023-11-21 12:22 | Day surgery (SDC) | payer MEDICARE, OTHER, SELFPAY ==
[2023-04-17 14:32] VITALS: BMI 27.5
--- NOTE | 2023-11-21 | PATH_ITS ---
[facility] Accession Number: [id number] No. of containers..03 Tissue . 01 Material submitted: . PART A: colon - DESCENDING POLYP PART B: colon - ASCENDING POLYP PART C: colon - DESCENDING POLYP @ 80cm . 01 Diagnosis: A. Descending Colon, Polyp: Inflammatory polyp. . B. Ascending Colon, Polyp: Tubular adenoma. . C. Descending Colon, Polyp at 80 cm: Hyperplastic polyp. MRV 11/23/2023 1511 Local . 01 Electronically signed: . Torri Lora MD, Pathologist NPI- [id number] . 01 Gross description: . Part A: DESCENDING POLYP: Received in formalin is 1 fragment(s) of bermudez, soft tissue measuring 0.6 x 0.6 x 0.4 cm submitted entirely in 1 cassette(s) Part B: ASCENDING POLYP: Received in formalin is 1 fragment(s) of bermudez, soft tissue measuring 0.3 x 0.3 x 0.3 cm submitted entirely in 1 cassette(s) Part C: DESCENDING POLYP @ 80cm: Received in formalin are 2 fragment(s) of bermudez, soft tissue measuring 0.2 x 0.2 x 0.2 cm to 0.3 x 0.2 x 0.2 cm submitted entirely in 1 cassette(s) /BRIGID 11/22/2023 2249 Local . 01 Pathologist provided ICD-10: D12.2 . 01 CPT . 674050, 529377, 850381 Specimen Comment: A courtesy copy of this report has been sent to [phone] Performed at: 01 [facility] [address] [place] [address] [address], [place], [place] [id number] MD Rivas Lazo MD Phone: [phone]
[2023-11-21 12:45] VITALS: BP 151/85; PULSE 79; RESP 12; TEMP 35.8; O2SAT 99; BMI 26.1
[2023-11-21] MEDS: LACTATED RINGERS 1,000 ML 42 ML IV (13:10)
--- NOTE | 2023-11-21 13:19 | PM.HP.1 ---
History of Present Illness History of Present Illness Date Patient Seen: 11/21/23 Time Patient Seen: 13:19 Chief complaint: SD Narrative: 68-year-old man here for screening colonoscopy. Last colonoscopy 10 years ago normal. No family history of intestinal malignancy. No abdominal concerns today. [facility] Medical History (Updated 10/20/23 @ 05:55 by Amando Perla MD) Bladder outlet obstruction Primary osteoarthritis involving multiple joints Hx of thyroid disease Hx of diabetes mellitus Chronic back pain (~2014) Tinnitus (~1999) Hearing loss (~2020) Partial blindness (~2019) GERD (gastroesophageal reflux disease) History of tobacco use Overweight BPH w urinary obs/LUTS Polyneuropathy, unspecified Acquired hypothyroidism Mixed hyperlipidemia Type 2 diabetes mellitus with cardiac complication (~1999) Coronary artery disease Cerebrovascular disease History of anal fissures Homonymous hemianopsia Essential hypertension (~1999) Surgical History (Updated 10/20/23 @ 05:55 by Amando Perla MD) History of prostate surgery History of hydrocelectomy Anesthesia S/P repair of hydrocele (~1999) Family History Father Renal failure Diabetes type 2, uncontrolled Myocardial infarction Heart failure Mother Heart failure Late onset Alzheimer dementia Brother Diabetes mellitus Sister Diabetes mellitus Sister COPD (chronic obstructive pulmonary disease) Social History marital status: household members: spouse Smoking Status: Former smoker alcohol intake: never caffeine: No Type(s) of exercise: walking frequency: 1-2 times per week duration: 45-60 minutes/day Meds Home Medications and Allergies Home Medications Medication Instructions Recorded Confirmed Type clopidogrel 75 mg tablet 75 mg PO DAILY #30 tabs 05/19/21 11/21/23 Rx cholecalciferol (vitamin D3) 50 50 mcg PO DAILY 05/25/22 11/21/23 History mcg (2,000 unit) capsule multivitamin 1 tab PO DAILY 05/25/22 11/21/23 History nitroglycerin 0.4 mg sublingual 0.4 mg sublingual Q5-15M PRN chest 05/25/22 11/21/23 History tablet pain metformin 1,000 mg tablet 1,000 mg PO BID #180 tabs 12/02/22 11/21/23 Rx atorvastatin 40 mg tablet 40 mg PO DAILY #90 tabs 12/26/22 11/21/23 Rx levothyroxine 75 mcg tablet 75 mcg PO DAILY #90 tabs 03/09/23 11/21/23 Rx lisinopril 20 mg tablet 20 mg PO DAILY #90 tabs 05/08/23 11/21/23 Rx empagliflozin 10 mg tablet 10 mg PO DAILY #90 tabs 07/11/23 11/21/23 Rx (Jardiance) blood sugar diagnostic (OneTouch #200 ea 07/13/23 10/20/23 Rx Ultra Test strips) Allergies Allergy/AdvReac Type Severity Reaction Status Date / Time No Known Allergies Allergy Verified 11/21/23 12:40 Exam Vital Signs (past 8 hours): - 11/21/23 12:45 Temperature 96.5 F L Pulse Rate 79 Respiratory Rate 12 Blood Pressure 151/85 H Pulse Oximetry 99 Oxygen Delivery Method Room Air Oxygen Delivery Method Room Air Narrative Exam Narrative: General adult man alert oriented no acute distress Chest nonlabored respiration Extremities warm well perfused Assessment & Plan Assessment & Plan narrative: The patient requires colorectal screening and colonoscopy is recommended. Technical details were discussed. Risks, benefits, alternatives explained. Risks including but not limited to myocardial infarction, aspiration, bleeding, pain, missed lesion, incomplete examination, need for further radiographic studies, colonic perforation, and need for major abdominal surgery were discussed. All questions were answered to their satisfaction, and they are in agreement with this plan.
[2023-11-21 13:52] VITALS: BP 108/75; PULSE 78; RESP 13; TEMP 36.4; O2SAT 96
--- NOTE | 2023-11-21 13:53 | P.OP.COLON_ITS ---
Operative Date/Time/Diagnoses Date of procedure: 11/21/23 Time of procedure: 13:53 Pre-op diagnosis: Personal history of colonic polyps Procedure & Clinicians Study performed: Colonoscopy and polypectomy Same procedure as scheduled: Yes Indications: Personal history of colonic polyps Colorectal screening Surgeon: Kyler Robbins Procedure Notes Procedure in detail: The history and physical was performed/updated and the patient is ASA class is 2. The procedure was discussed in detail with the patient. Potential risks complications including infection, bleeding, missed diagnosis, perforation, need for surgery, and were explained. Their questions were answered and informed consent was obtained. Patient was brought to the procedure room and placed standard monitoring equipment. The patient's vital signs were monitored continuously throughout the entire procedure. Prior to starting time-out was performed. The patient was placed in the left lateral recumbent position. Procedural sedation was administered by anesthesia. Examination began with a thorough inspection of the perianal area there was no evidence of fissures, fistulae, external hemorrhoids or cutaneous malignancy. The colonoscopy scope was then placed into the anal canal and was advanced to the cecum, which was identified by the ileocecal valve, the appendiceal orifice and the confluence of the taenia. The scope was then slowly withdrawn examining colon thoroughly in all directions, irrigating it of any residual stool. The scope was retroflexed within the rectum The patient tolerated the procedure well. They will be discharged once criteria are met. The prep was of good/excellent quality. The withdrawl time was 7 minutes. FINDINGS * Descending colon. 5 mm polyp removed in pieces using biopsy forceps. 1 cm pedunculated polyp removed with hot snare * Ascending colon-3 mm polyp removed with biopsy forceps * Sigmoid diverticulosis Specimen(s): other (Ascending colon polyp, descending colonic polyps x2) Impression: Colonic polyps x3 Post-procedure Plan for aftercare: Follow-up is dependent on pathology findings Disposition: same day surgery
[2023-11-21 13:57] VITALS: BP 108/74; PULSE 73; RESP 13; O2SAT 95
[2023-11-21 14:02] VITALS: BP 115/80; PULSE 74; RESP 14; O2SAT 93
[2023-11-21 14:08] VITALS: BP 114/74; PULSE 76; RESP 17; O2SAT 97
== END 2023-11-21 14:24 | disposition home or self-care (01) ==
PROVIDERS: PCP Internal Medicine; Referring Provider Surgery; Visit Provider Surgery
PROC: 0DJD8ZZ Inspection of Lower Intestinal Tract, Via Natural or Artificial Opening Endoscopic (ICD-10-PCS; CPT 45378; principal; 2023-11-21 13:45)
DX: Z12.11 Encounter for screening for malignant neoplasm of colon (principal); Z86.010 Personal history of colon polyps; K57.30 Diverticulosis of large intestine without perforation or abscess without bleeding; K51.40 Inflammatory polyps of colon without complications; D12.2 Benign neoplasm of ascending colon; K63.5 Polyp of colon
CPT/HCPCS: 45385; 45380; 82962; J2704

== ENCOUNTER → 2024-02-26 11:30 | Outpatient (CLI) | payer MEDICARE, OTHER, SELFPAY ==
[2023-04-17 14:32] VITALS: BMI 27.5
== END ==
PROVIDERS: PCP Internal Medicine; Referring Provider Urology; Visit Provider Urology
DX: N32.0 Bladder-neck obstruction (principal); N40.1 Benign prostatic hyperplasia with lower urinary tract symptoms; N13.8 Other obstructive and reflux uropathy
CPT/HCPCS: 36415; 84153

== ENCOUNTER → 2024-04-11 09:04 | Outpatient (CLI) | payer MEDICARE, OTHER, SELFPAY ==
[2023-04-17 14:32] VITALS: BMI 27.5
[2024-04-11 10:16] LABS: Hemoglobin A1C% w Est Avg Glu 7.8 % (4.0-6.0)
[2024-04-11 10:20] LABS: Aspartate Aminotransferase 21 IU/L (17-59); BUN Creatinine Ratio 15.1 (6-22); Blood Urea Nitrogen 14 mg/dL (9-20); Calcium 9.1 mg/dL (8.4-10.2); Carbon Dioxide 30 mmol/L (22-32); Chloride 101 mmol/L (98-107); Cholesterol 135 mg/dL (140-199); Estimated Glomerular Filt Rate > 60 mL/min (>60); Glucose 241 mg/dL (80-110); HDL Cholesterol 46 mg/dL (40-60); HEMOLYSIS < 15 (0-50); LDL Cholesterol Calculated 54 mg/dL (<100); Potassium 4.6 mmol/L (3.4-5.1); Sodium 137 mmol/L (137-145); Triglycerides 175 mg/dL (35-150)
[2024-04-11 10:31] LABS: Creatinine Urine Random 68.11 mg/dL
[2024-04-11 10:36] LABS: Microalbumin Urine Random 0.6 mg/dL (0-1.6)
[2024-04-11 10:48] LABS: Prostate Specific Antigen 0.806 ng/mL (0.10-4.00)
== END ==
LOC: LAB 09:05
PROVIDERS: PCP Internal Medicine; Referring Provider Internal Medicine; Visit Provider Internal Medicine
DX: N40.1 Benign prostatic hyperplasia with lower urinary tract symptoms (principal); N13.8 Other obstructive and reflux uropathy; E11.59 Type 2 diabetes mellitus with other circulatory complications; E03.9 Hypothyroidism, unspecified; E78.2 Mixed hyperlipidemia
CPT/HCPCS: 36415; 80048; 80061; 82043; 82570; 83036; 84153; 84443; 84450

== ENCOUNTER → 2024-04-16 15:03 | Outpatient (CLI) | payer MEDICARE, OTHER, SELFPAY ==
[2023-04-17 14:32] VITALS: BMI 27.5
[2024-04-16 17:28] LABS: Appearance Urine UA SL CLOUDY
[2024-04-16 17:30] LABS: Color Urine UA ORANGE
[2024-04-16 18:41] LABS: Bacteria Urine None Seen; Culture Indicated Urine Cult Not Indicated; Hyaline Casts Urine 0-1/LPF; RBC Urine None Seen (0-5/HPF); Squamous Epithelial Cell Urine 0-1 /HPF (0-5/HPF); Urine Volume 10mL (spun); WBC Urine 0-1/HPF (0-5/HPF)
== END ==
PROVIDERS: PCP Internal Medicine; Referring Provider Internal Medicine; Visit Provider Internal Medicine
DX: R30.0 Dysuria (principal); N39.0 Urinary tract infection, site not specified
CPT/HCPCS: 81001

== ENCOUNTER → 2024-07-16 10:44 | Outpatient (CLI) | payer MEDICARE, OTHER, SELFPAY ==
[2023-04-17 14:32] VITALS: BMI 27.5
[2024-07-16 14:04] LABS: Hemoglobin A1C% w Est Avg Glu 6.6 % (4.0-6.0)
[2024-07-16 14:58] LABS: BUN Creatinine Ratio 15.7 (6-22); Blood Urea Nitrogen 13 mg/dL (9-20); Calcium 9.3 mg/dL (8.4-10.2); Carbon Dioxide 28 mmol/L (22-32); Chloride 100 mmol/L (98-107); Estimated Glomerular Filt Rate > 60 mL/min (>60); Glucose 139 mg/dL (80-110); HEMOLYSIS < 15 (0-50); Sodium 136 mmol/L (137-145)
== END ==
PROVIDERS: PCP Internal Medicine; Referring Provider Internal Medicine; Visit Provider Internal Medicine
DX: E11.59 Type 2 diabetes mellitus with other circulatory complications (principal)
CPT/HCPCS: 36415; 80048; 83036

== ENCOUNTER → 2024-08-27 14:46 | Outpatient (CLI) | payer MEDICARE, OTHER, SELFPAY ==
[2023-04-17 14:32] VITALS: BMI 27.5
[2024-08-27 15:13] LABS: Add Manual Diff / Slide Review NO; Basophils Absolute Auto 0 /uL (0-100); Basophils Percent Auto 0.6 % (0-2); Eosinophils Absolute Auto 100 /uL (0-450); Eosinophils Percent Auto 1.8 % (2-4); Hemoglobin 14.8 g/dL (13.5-17.5); Lymphocytes Absolute Auto 1700 /uL (1100-4500); Lymphocytes Percent Auto 25.5 % (25-40); Mean Corpuscular HGB Conc 34.4 % (30-36); Mean Corpuscular Hemoglobin 31.1 PG (26-34); Mean Corpuscular Volume 90.5 fL (80-100); Monocytes Absolute Auto 500 /uL (0-900); Monocytes Percent Auto 8.2 % (3-14); Neutrophils Absolute Auto 4300 /uL (1500-7000); Neutrophils Percent Auto 63.9 % (50-75); Platelet Count 226 X10^3/uL (150-400); Red Blood Cell Count 4.75 X10^6/uL (4.5-5.9); Red Cell Distribution Width 13.4 % (11.6-14.8); White Blood Cell Count 6.7 X10^3/uL (4.5-11.0)
[2024-08-27 15:30] LABS: Alanine Aminotransferase 18 IU/L (<50); Albumin 3.9 g/dL (3.5-5.0); Albumin Globulin Ratio 1.7 (1.0-2.8); Alkaline Phosphatase 70 U/L (38-126); Aspartate Aminotransferase 20 IU/L (17-59); BUN Creatinine Ratio 17.6 (6-22); Bilirubin Total 0.5 mg/dL (0.2-1.3); Blood Urea Nitrogen 16 mg/dL (9-20); Calcium 9.1 mg/dL (8.4-10.2); Carbon Dioxide 30 mmol/L (22-32); Chloride 99 mmol/L (98-107); Estimated Glomerular Filt Rate > 60 mL/min (>60); Globulin 2.3 g/dL (1.7-4.1); Glucose 177 mg/dL (80-110); HEMOLYSIS < 15 (0-50); Potassium 4.7 mmol/L (3.4-5.1); Sodium 135 mmol/L (137-145); Total Protein 6.2 g/dL (6.3-8.2)
== END ==
LOC: LAB 14:48
PROVIDERS: PCP Internal Medicine; Referring Provider Physician Assistant; Visit Provider Physician Assistant
DX: R21 Rash and other nonspecific skin eruption (principal)
CPT/HCPCS: 36415; 80053; 85025

== ENCOUNTER → 2024-10-21 15:34 | Outpatient (CLI) | payer MEDICARE, OTHER, SELFPAY ==
[2023-04-17 14:32] VITALS: BMI 27.5
[2024-10-21 16:24] LABS: BUN Creatinine Ratio 15.7 (6-22); Blood Urea Nitrogen 16 mg/dL (9-20); Calcium 9.2 mg/dL (8.4-10.2); Carbon Dioxide 33 mmol/L (22-32); Chloride 100 mmol/L (98-107); Estimated Glomerular Filt Rate > 60 mL/min (>60); Glucose 180 mg/dL (80-110); HEMOLYSIS < 15 (0-50); Potassium 4.6 mmol/L (3.4-5.1); Sodium 137 mmol/L (137-145)
[2024-10-21 16:28] LABS: Hemoglobin A1C% w Est Avg Glu 6.7 % (4.0-6.0)
== END ==
LOC: LAB 15:35
PROVIDERS: PCP Internal Medicine; Referring Provider Internal Medicine; Visit Provider Internal Medicine
DX: E11.59 Type 2 diabetes mellitus with other circulatory complications (principal)
CPT/HCPCS: 36415; 80048; 83036

== ENCOUNTER → 2024-10-25 09:40 | Outpatient (CLI) | payer MEDICARE, OTHER, SELFPAY ==
[2023-04-17 14:32] VITALS: BMI 27.5
--- NOTE | 2024-10-25 09:41 | DI.CT.S_ITS ---
PROCEDURE: CT LUNG LOW DOSE SCREENING INDICATIONS: Personal history of nicotine dependence TECHNIQUE: Noncontrast 2.0-2.5 mm thick sections acquired from the pulmonary apices to the posterior costophrenic angles. 7 mm thick axial MIP, and 5 mm coronal and sagittal reformats were then acquired. For radiation dose reduction, the following was used: automated exposure control, adjustment of mA and/or kV according to patient size. COMPARISON: [facility], CT, CT LUNG LOW DOSE SCREENING, 10/24/2023, 11:31. FINDINGS: Image quality: Diagnostic. Lower Neck: No enlarged lymph nodes. Thyroid: No thyroid nodules which require sonographic follow up, per consensus guidelines. Axillae: No enlarged lymph nodes. Chest Wall: Unremarkable. Bones: Degenerative changes of the spine. Lungs and Pleura: No pneumothorax or pleural effusions. Stable 3 mm right minor fissure nodule (3/192), likely intrapulmonary lymph node. A few additional micro nodules are stable compared to prior. No new or enlarging pulmonary nodules.. A few scattered calcified granulomas are noted. Heart: Heart size is normal. Moderate coronary artery calcifications. No pericardial effusion. Thoracic Vessels: The aorta and pulmonary arteries demonstrate normal size. Mediastinum and Amber: No enlarged lymph nodes. Esophagus: No wall thickening. No hiatal hernia. Upper Abdomen: Visualized upper abdomen solid organs and bowel loops appear normal. IMPRESSION: No new or enlarging pulmonary nodules. Stable pulmonary micro nodules. LUNG-RADS 2; continued annual screening, if eligible. Clinically Significant Non-pulmonary Findings: Moderate coronary artery calcifications. Dictated by: Lane Lion M.D. on 10/25/2024 at 14:19 Approved by: Lane Lion M.D. on 10/25/2024 at 14:23
== END ==
PROVIDERS: PCP Internal Medicine; Referring Provider Internal Medicine; Visit Provider Internal Medicine
DX: Z87.891 Personal history of nicotine dependence (principal); Z12.2 Encounter for screening for malignant neoplasm of respiratory organs; I25.10 Atherosclerotic heart disease of native coronary artery without angina pectoris
CPT/HCPCS: 71271

== ENCOUNTER → 2025-02-21 14:41 | Outpatient (CLI) | payer MEDICARE, OTHER, SELFPAY ==
[2023-04-17 14:32] VITALS: BMI 27.5
[2025-02-21 16:27] LABS: Prostate Specific Antigen Scrn 0.711 ng/mL (0.1-4.0)
== END ==
PROVIDERS: Urology; PCP Internal Medicine; Referring Provider Internal Medicine; Visit Provider Internal Medicine
DX: Z12.5 Encounter for screening for malignant neoplasm of prostate (principal)
CPT/HCPCS: 36415; G0103

== ENCOUNTER → 2025-03-04 08:35 | Outpatient (CLI) | payer MEDICARE, OTHER, SELFPAY ==
[2023-04-17 14:32] VITALS: BMI 27.5
[2025-03-04 09:04] LABS: Hematocrit 47.7 % (41-53); Hemoglobin 16.6 g/dL (13.5-17.5); Mean Corpuscular HGB Conc 34.8 % (30-36); Mean Corpuscular Hemoglobin 31.5 PG (26-34); Mean Corpuscular Volume 90.7 fL (80-100); Platelet Count 196 X10^3/uL (150-400); Red Blood Cell Count 5.27 X10^6/uL (4.5-5.9); Red Cell Distribution Width 13.4 % (11.6-14.8)
[2025-03-04 09:53] LABS: TSH w/ Reflex to FT4 1.51 uIU/mL (0.47-4.68)
[2025-03-04 13:16] LABS: Alanine Aminotransferase 24 IU/L (<50); Albumin 4.3 g/dL (3.5-5.0); Albumin Globulin Ratio 2.3 (1.0-2.8); Alkaline Phosphatase 71 U/L (38-126); Aspartate Aminotransferase 24 IU/L (17-59); Bilirubin Total 0.8 mg/dL (0.2-1.3); Blood Urea Nitrogen 23 mg/dL (9-20); Calcium 9.2 mg/dL (8.4-10.2); Carbon Dioxide 24 mmol/L (22-32); Chloride 104 mmol/L (98-107); Cholesterol 121 mg/dL (140-199); Estimated Glomerular Filt Rate > 60 mL/min (>60); Globulin 1.9 g/dL (1.7-4.1); Glucose 219 mg/dL (70-99); HDL Cholesterol 42 mg/dL (40-60); HEMOLYSIS < 15 (0-50); LDL Cholesterol Calculated 44 mg/dL (<100); Potassium 4.2 mmol/L (3.4-5.1); Sodium 137 mmol/L (137-145); Total Protein 6.2 g/dL (6.3-8.2); Triglycerides 177 mg/dL (35-150)
== END ==
PROVIDERS: PCP Internal Medicine; Referring Provider Internal Medicine; Visit Provider Internal Medicine
DX: E11.59 Type 2 diabetes mellitus with other circulatory complications (principal); I25.10 Atherosclerotic heart disease of native coronary artery without angina pectoris; E78.2 Mixed hyperlipidemia
CPT/HCPCS: 80053; 80061; 83036; 84443; 85027

== ENCOUNTER → 2025-04-21 13:10 | Outpatient (CLI) | payer MEDICARE, OTHER, SELFPAY ==
[2023-04-17 14:32] VITALS: BMI 27.5
--- NOTE | 2025-04-23 14:18 | DI.NM.S_ITS ---
DATE OF SERVICE: 04/22/2025 PROCEDURE: Exercise perfusion study. INDICATIONS: Shortness of breath, type 2 DM, HTN, HLD. RADIOPHARMACEUTICAL: 25.4 mCi technetium-99m Myoview IV was injected at stress and 27 mCi technetium-99m Myoview IV was injected at rest. CARDIAC STRESS: The patient underwent exercise stress test under the supervision of an attending staff. He walked on Camacho protocol for 8 minutes 31 seconds, achieved 10.1 METs of workload, HERNAN -26%, maximum heart rate of 140. Peak blood pressure 166/92. Resting blood pressure 120/82. Baseline rhythm sinus. During stress, no convincing ischemic changes seen. No significant arrhythmia. No chest pain. He had some shortness of breath. RAW DATA: There is increased subdiaphragmatic activity. GATED STUDY: Resting LV ejection fraction 61% and stress LV ejection fraction 79% without any obvious wall motion abnormalities. Resting end- diastolic volume 75 mL. TID ratio 0.80, which is within normal limit. Lung/heart ratio 0.30, which is within normal limit. MYOCARDIAL PERFUSION SCAN: Stress supine, resting supine, and stress prone images were compared to each other. Stress supine and resting supine images revealed large size, moderate to severely decreased perfusion of inferior wall extending into the inferior apex and basal inferior septum which got completely resolved during stress prone images suggestive of diaphragmatic tissue attenuation artifact. Stress prone images revealed normal myocardial perfusion. CONCLUSION: I will call this study a normal myocardial perfusion study with evidence of diaphragmatic tissue attenuation artifact which got resolved during stress prone images. Good exercise tolerance. HERNAN - 26%. Normal hemodynamic response. No ischemic EKG changes. No significant arrhythmias. No anginal symptoms. He had some shortness of breath. Overall, low-risk exercise perfusion study. The patient had perfusion study in November 2019, that time had similar findings without any convincing ischemic infarction. Maxi sOorio - YOVANA/lesley/EVIE doc#: [id number]/job#: [id number] dd: 04/22/2025 16:28:00 dt: 04/22/2025 17:02:00 DICTATING MD/COPIES TO: Monty Paredes MD COPIES MNE: KOTA;
== END ==
PROVIDERS: PCP Internal Medicine; Referring Provider Internal Medicine; Visit Provider Internal Medicine
DX: I25.10 Atherosclerotic heart disease of native coronary artery without angina pectoris (principal)
CPT/HCPCS: 78452; 93017; A9502

== ENCOUNTER → 2025-10-20 08:34 | Outpatient (CLI) | payer MEDICARE, OTHER, SELFPAY ==
[2023-04-17 14:32] VITALS: BMI 27.5
[2025-10-20 09:17] LABS: Hemoglobin A1C% w Est Avg Glu 8.3 % (4.0-6.0)
[2025-10-20 09:18] LABS: Blood Urea Nitrogen 17 mg/dL (9-20); Calcium 9.0 mg/dL (8.4-10.2); Carbon Dioxide 30 mmol/L (22-32); Chloride 101 mmol/L (98-107); Estimated Glomerular Filt Rate > 60 mL/min (>60); Glucose 228 mg/dL (70-99); HEMOLYSIS < 15 (0-50); Potassium 4.1 mmol/L (3.4-5.1); Sodium 137 mmol/L (137-145)
[2025-10-20 09:43] LABS: Prostate Specific Antigen 0.946 ng/mL (0.10-4.00)
[2025-10-20 11:43] LABS: Microalbumi Creatinin Ratio Ur 13.0 ug/mg CR (<30)
== END ==
PROVIDERS: PCP Internal Medicine; Referring Provider Internal Medicine; Visit Provider Internal Medicine
DX: E03.9 Hypothyroidism, unspecified (principal); E11.59 Type 2 diabetes mellitus with other circulatory complications; N40.1 Benign prostatic hyperplasia with lower urinary tract symptoms; N13.8 Other obstructive and reflux uropathy
CPT/HCPCS: 36415; 80048; 82043; 82570; 83036; 84153; 84450

== ENCOUNTER → 2025-10-24 09:48 | Outpatient (CLI) | payer MEDICARE, OTHER, SELFPAY ==
[2023-04-17 14:32] VITALS: BMI 27.5
--- NOTE | 2025-10-24 09:50 | DI.CT.S_ITS ---
PROCEDURE: CT LUNG LOW DOSE SCREENING INDICATIONS: tobacco use history TECHNIQUE: Noncontrast 2.0-2.5 mm thick sections acquired from the pulmonary apices to the posterior costophrenic angles. 7 mm thick axial MIP, and 5 mm coronal and sagittal reformats were then acquired. For radiation dose reduction, the following was used: automated exposure control, adjustment of mA and/or kV according to patient size. COMPARISON: [facility], CT, CT LUNG LOW DOSE SCREENING, 10/25/2024, 10:04. FINDINGS: Image quality: Diagnostic. Lower Neck: No enlarged lymph nodes. Thyroid: No thyroid nodules which require sonographic follow up, per consensus guidelines. Axillae: No enlarged lymph nodes. Chest Wall: Unremarkable. Bones: Sclerotic lesion within the left 9th rib is stable. Degenerative changes of the spine. Lungs and Pleura: No pneumothorax or pleural effusions. Small ground-glass opacities within the right upper lobe and lingula, largest measuring 9 mm (3/150). Stable 3 mm right minor fissure nodule, likely intrapulmonary lymph node. Heart: Heart size is normal. Severe coronary artery calcifications. Trace pericardial effusion. Thoracic Vessels: The aorta and pulmonary arteries demonstrate normal size. Atherosclerotic vascular calcifications. Mediastinum and Amber: No enlarged lymph nodes. Esophagus: No wall thickening. No hiatal hernia. Upper Abdomen: Visualized upper abdomen solid organs and bowel loops appear normal. IMPRESSION: Scattered ground-glass opacities measuring up to 9 mm in the right upper lobe and lingula. Findings may be infectious in etiology. LUNG-RADS 0; incomplete or infectious, recommend three-month follow-up chest CT. Clinically Significant Non-pulmonary Findings: Severe coronary artery calcifications. Dictated by: Lane Lion M.D. on 10/25/2025 at 14:14 Approved by: Lane Lion M.D. on 10/25/2025 at 14:20
== END ==
LOC: CT 09:49
PROVIDERS: PCP Internal Medicine; Referring Provider Internal Medicine; Visit Provider Internal Medicine
DX: Z12.2 Encounter for screening for malignant neoplasm of respiratory organs (principal); Z87.891 Personal history of nicotine dependence; I25.10 Atherosclerotic heart disease of native coronary artery without angina pectoris
CPT/HCPCS: 71271